=== PATIENT | male | born 1955 | race Caucasian/White ===

== ENCOUNTER → 2024-07-07 14:08 | Outpatient (REF) | payer MEDICARE, OTHER, SELFPAY | LOC: HWRAD 14:08 | PROVIDERS: ATTENDING PHYSICIAN Student in an Organized Health Care Education/Training Program; FAMILY PHYSICIAN Internal Medicine | DX: R05.3 Chronic cough (principal) | CPT/HCPCS: 71046 ==

== ENCOUNTER → 2024-11-24 13:09 | Outpatient (REF) | payer MEDICARE, OTHER, SELFPAY | LOC: CLAB 13:09 | PROVIDERS: ATTENDING PHYSICIAN Specialist | DX: R97.20 Elevated prostate specific antigen [PSA] (principal) | CPT/HCPCS: 88305 ==

== ENCOUNTER 2024-12-24 13:19 | Inpatient (IN) | payer MEDICARE, OTHER, SELFPAY ==
[2024-12-24] VITALS (14 sets, daily range): BP systolic 82–116; BP diastolic 54–71; BMI 26.5
--- NOTE | 2024-12-24 11:27 | ED.GENMED ---
History of Present Illness
General
Chief Complaint: Urinary Symptoms
Source: patient and spouse
Time Seen by Provider: 12/24/24 11:01
History of Present Illness
History of Present Illness:
69-year-old male with past medical history of hypertension, BPH, newly diagnosed prostate cancer (scheduled undergo MRI of Wednesday this week, currently not receiving any treatment) presenting to the ER for evaluation of a multitude of symptoms
including urinary frequency/urgency, dysuria, dark urine, headache, cough, mild shortness of breath and generalized fatigue. Symptoms started over the last 2 to 3 days, patient took a home COVID test yesterday which was negative. No recent sick
contacts, travel or recent antibiotics. Patient's prostate biopsy was on November 24 done at this facility. Patient completed the antibiotics following as directed. Currently denies any chills or rigors, abdominal pain, vomiting but does endorse
diminished p.o. intake to both solids and liquids. No other concerns presently
Past History
Past History
ED Past Medical History: Cancer and HTN
ED Past Surgical History: Other
Social History
Tobacco: Non-smoker
Alcohol: None
Drug: None
Personal:
Living: with family
Review of Systems
Review of Systems
All Other Systems: ROS reviewed and negative except as documented in HPI and ROS
Phy Exam
Physical Exam
Physical Exam:
GENERAL: Alert , in no apparent distress, hypotension from triage noted, repeated at time of my exam which was 82/57
EYE: clear conjunctiva b/l
HEAD: NCAT
ENT: o/p clr, mmm.
CARDIAC: Regular rate and rhythm .
LUNGS: Clear breath sounds bilaterally, no acute respiratory distress, no wheezes/rales/rhonchi
ABDOMEN: Soft, without focal tenderness, no r/g, no cvat
NEUROLOGICAL: Alert and oriented
SKIN: Warm and dry, skin intact.
MUSCULOSKELETAL: No edema, well perfused.
PSYCH: Normal and appropriate interaction.
Scores
Heart Failure Risk
Heart Failure Risk Score: Not Applicable
Heart Score for Chest Pain Patients
STEMI patient?: Not applicable
Withdrawal Assessment of Alcohol
Withdrawal Assessment Completed?: Not applicable
Sepsis
Sepsis Screening
Sepsis Assessment: Severe Sepsis
Sepsis Screening: Lactate >2mmol/L, Hypotension and ARF-Creatinine >2.0
Sepsis Screen
Sepsis Screen: Severe Sepsis
Date: 12/24/24
Time: 15:06
Course
Orders/Labs/Results
Orders:
Orders
12/24/24 10:34
EKG [Electrocardiogram (*1)] Urgent
Reason for Study: Shortness of Breath
EKG- Treatment ONCE
12/24/24 11:12
CR Chest - 2 Views Urgent
Comment:
Reason For Exam: cough, SOB
12/24/24 11:22
Complete Blood Count/With Diff Urgent
Comprehensive Metabolic Panel Urgent
Lactic Acid Q4H
Comment: CANCEL 2nd LACTIC ACID IF 1st LACTIC ACID IS LESS THAN 2
Troponin I Urgent
Blood Culture Q30M
ALONDRA Source: Blood/Venous
Specimen Description:
12/24/24 11:27
0.9% Sodium Chloride 1000 ml [Nss] 2,500 ml IV NOW STA
12/24/24 11:35
Blood Culture Q30M
ALONDRA Source: Blood/Venous
Specimen Description:
12/24/24 12:03
Cefepime HCl [Maxipime] 1,000 mg IV NOW STA
12/24/24 12:07
US Kidneys [US Renal Only W/O Bladder] Urgent
Comment:
Reason For Exam: renal failure
12/24/24 12:17
Sterile Water [Sterile Water For Injection] 20 ml .ROUTE .STK-MED
12/24/24 12:29
Admit/Transfer Patient As Directed
Co-Sign Provider:
Level of Care: Inpatient admission
Assign to:: Medical/Surgical
Physician / Group: frannie
Diagnosis: urosepsis
Reason for Hospitalization: urosepsis
Expected length of stay greater than two midnights?: Yes
ELOS- Estimated Length of Stay in days: 2
I certify the patient meets the requirements for IP care: Yes
12/24/24 12:30
Code Status As Directed
Resuscitation Status: Full Code
PRN Pain Medication Management As Directed
May give lesser potent ordered pain med per pt: Yes
preference::
Protocol:: Medication orders for pain may be administered in a
manner that supports deferring to patient preference
when the pt is:
- Requesting an ordered lesser potent pain medication.
Least to most potent pain medications are defined
as: acetaminophen < NSAID < tramadol < opioids
(morphine, oxycodone, hydromorphone).
- Requesting a lesser dose of the same medication IF
ORDERED.
- Requesting a less intrusive route of administration
if both routes are prescribed by the provider (PO <
IV).
12/24/24 12:32
CDIFF [C difficile Antigen & Toxins] Routine
ALONDRA Source: Feces/Stool
Specimen Description:
Respiratory Culture/Gram Stain Urgent
ALONDRA Source: Sputum
Specimen Description:
Stool Culture Routine
ALONDRA Source: Feces/Stool
Specimen Description:
12/24/24 14:16
Urinalysis Reflex To Culture Urgent
Date Specimen was Collected: 12/24/24
Time Specimen was Collected: 14:13
12/24/24 Dinner
Clear Liquid
12/24/24 15:05
0.9% Sodium Chloride 1000 ml [Nss] 1,000 ml IV 100 mls/hr
Acetaminophen [Tylenol] 650 mg PO Q4HPRN PRN
Azithromycin 500 mg/250 ml [Zithromax Infusion] 500 mg in 250 ml IV Q24H
CefTRIAXone [Rocephin] 1,000 mg IV Q24H
Ondansetron Injectable [Zofran] 4 mg IV Q6HPRN PRN
12/24/24 15:05
UROLOGY CONSULT Routine
Consulting Provider: Richar Garcia Jr.
Was physician already notified: Yes
Legionella Urinary Antigen Routine
ALONDRA Source: Urine
Specimen Description:
Strep pneumoniae Antigen Routine
ALONDRA Source: Urine
Specimen Description:
Activity As Directed
Activity Level: As Tolerated
Bladder Scan As Directed
Follow Bladder Retention/Intermittent Cath Algorithm?: Yes
PRN if no void in __ hours: 6
Frequency: Per Retention Algorithm
If Bladder Scan Result >: 400
then:: Straight cath
Straight Cath As Directed
Frequency: Per Retention Algorithm
Additional Instructions: straight cath as needed per acute urinary retention algorithm for 24 hrs
Additional Instructions: for bladder scan greater than 400 mL
Vital Signs As Directed
Frequency: Per unit guidelines
DX Deep Vein Thrombosis Video Routine
12/24/24 15:15
Lactic Acid Q4H
Comment: CANCEL 2nd LACTIC ACID IF 1st LACTIC ACID IS LESS THAN 2
12/24/24 20:00
Heparin 5,000 units SC Q12
Tamsulosin [Flomax] 0.4 mg PO BID
12/25/24 06:00
Complete Blood Count/With Diff IN AM
Comprehensive Metabolic Panel IN AM
Abnormal Lab Results
12/24/24
11:22
WBC 13.9 H 10^3/uL
(4.8-10.8)
RBC 3.60 L 10^6/uL
(4.70-6.10)
Hgb 11.1 L g/dL
(13.0-18.0)
Hct 31.4 L %
(39.0-52.0)
Plt Count 107 L 10^3/uL
(130-400)
Abs Immat Gran (auto) 1.3 H 10^3/uL
(0-0.05)
Absolute Neuts (auto) 12.0 H 10^3/uL
(1.4-6.5)
Absolute Lymphs (auto) 0.1 L 10^3/uL
(1.2-3.4)
Immature Gran % 9.3 H %
(0-0.5)
Neutrophils % 86.1 H %
(42.2-75.2)
Lymphocytes % 1.0 L %
(20.5-51.1)
Sodium 128 L mmol/L
(135-145)
Chloride 95 L mmol/L
(98-107)
BUN 64 H mg/dl
(9-20)
Creatinine 3.9 H mg/dL
(0.7-1.3)
Glucose 119 H mg/dl
(70-99)
Lactic Acid 3.0 H mmol/L
(0.7-2.0)
Calcium 8.0 L mg/dl
(8.4-10.2)
Total Protein 5.7 L g/dl
(6.3-8.2)
Albumin 3.4 L g/dl
(3.5-5.0)
12/24/24 11:22
12/24/24 11:22
Vital Signs
Initial and Last Documented VS:
Initial Vital Signs
Temp Pulse Resp BP Pulse Ox
97.8 F 88 17 87/59 99
12/24/24 10:29 12/24/24 10:29 12/24/24 10:29 12/24/24 10:29 12/24/24 10:29
Last Documented Vital Signs
Temp Pulse Resp BP Pulse Ox
97.8 F 75 24 109/62 95
12/24/24 10:29 12/24/24 14:15 12/24/24 14:15 12/24/24 14:15 12/24/24 14:15
MDM/Problems Addressed
Differential Diagnosis Includes:
Prostatitis
Cystitis
Pyelonephritis
Renal/ureteral colic
COVID/other viral etiology
Pneumonia
Sepsis/bacteremia
Electrolyte imbalance
Less likely ACS or any cardiac etiology
MDM/Problems Addressed:
69-year-old male presented to the ER for evaluation of generally feeling unwell, urinary symptoms as well as upper respiratory symptoms over the last 2 to 3 days. Patient recently diagnosed with prostate cancer, currently scheduled to undergo MRI
this coming Wednesday and will have further follow-up with urology for further treatment planning. Patient hypotensive but no tachycardia or fever here. Sepsis workup initiated. Will treat with sepsis fluid bundle. Will hold on antibiotics until
source identified. Disposition pending.
*Pulse Oximetry
SaO2: 99
Oxygen Mode of Delivery: Room air
Patient hypoxic: no
*EKG
Heart Rate: 82
Rate: normal
Rhythm: sinus and PAC's
Ischemia: no ischemia
*Senior Center Manager Interpretation
Rate: normal
Heart Rate: 77
Rhythm: sinus
*Critical Care Note
Total Time (30-74mins, 75-104mins- exclusive of procedures): 30
comment:
Critical care statement: A total of 30 minutes of critical care time was provided for this patient. This includes management of unstable vital signs, evaluation of the patient at bedside, reviewing the patient's pertinent medical records, discussion
with consultants, review of old EKGs and review of pertinent medical records. This time with separate from time utilized to perform the aforementioned documented procedures
Patient Management
Discussion with other providers: Hospitalist and Electro Mechanical Technologist
Escalation/DeEscalation of care consider admission/obs:
Patient labs significantly abnormal with WBC 14, lactic acid of 3, new onset renal failure. UA concerning for infection. Continuing sepsis fluids, IV abx. Hospitalist team and urology notified. Hospitalist team to admit
ED Attending Note
-
Portions of this chart may have been created with voice recognition software.� Occasional wrong word or��sound alike� substitutions may have occurred due to the inherent limitations of voice recognition software.
Discharge Plan
Departure
Patient Disposition: Admit
Date of Disposition: 12/24/24
Time of Disposition: 12:09
Presentation/result/management discussed w/ accepting MD/DO: Hospitalist
Discharge Problem:
Sepsis, Urinary tract infection
Interventions
Interventions:
*Risk Screen - Suicide Last Done: 12/24/24 10:34
*General Assessment Last Done: 12/24/24 10:34
*Neglect/Abuse Screening Last Done: 12/24/24 10:34
*ED COVID-19 Vaccine History Last Done: 12/24/24 10:34
ED-Male Genitourinary Assessment Last Done: 12/24/24 12:52
[2024-12-24] MEDS: NSS 2500 ML IV (11:32)
[2024-12-24 11:43] LABS: Hematocrit 31.4 % (39.0-52.0); Hemoglobin 11.1 g/dL (13.0-18.0); Mean Corp Hgb Conc. 35.4 g/dL (33.0-37.0); Mean Corpuscular Volume 87.2 fL (80.0-94.0); Platelet Count 107 10^3/uL (130-400); Red Cell Dist. Width 12.5 % (11.5-14.5)
[2024-12-24 12:00] LABS: ALT (SGPT) 32 U/L (0-50); AST (SGOT) 34 U/L (17-59); Albumin 3.4 g/dl (3.5-5.0); Alkaline Phosphatase 66 U/L (38-126); Blood Urea Nitrogen 64 mg/dl (9-20); Calcium 8.0 mg/dl (8.4-10.2); Carbon Dioxide 22 mmol/L (22-30); Chloride 95 mmol/L (98-107); Estimated Creatinine Clearance 19 ml/min; Glucose 119 mg/dl (70-99); Potassium 4.4 mmol/L (3.5-5.1); Sodium 128 mmol/L (135-145); Total Protein 5.7 g/dl (6.3-8.2); eGFR 16.11
[2024-12-24 12:13] LABS: Troponin I 0.023 ng/ml
[2024-12-24] MEDS: MAXIPIME 1000 MG IV (12:18)
--- NOTE | 2024-12-24 12:31 | CON.MD ---
Consultation - Medical
-
see dictated note
pt with hx of UTI earlier this year
presented to Dr Juan with PSA of 30
had bx in late october- + for multifocal prostate cancer- was given dennise-procedure levaquin and 1does of tobra at time of bx
now presents with increasing freq/dysuria- no hematuria but also diarrhea and cough/SOB
cr elevated
plan
suspected UTI
admit for hydration and iv antibx
check pvr/renal u/s
will follow
Consultation
-
Date/Time Consultation Requested: 12/24/24 at noon
Date/Time Consultation Performed: 12/24/24 at 12:30pm
Requesting Provider: ER
Performing Provider: Dr rodriguez
Reason for Consultation: UTI
--- NOTE | 2024-12-24 12:33 | HPS.HSE ---
Family Physician
-
Family Physician: Saud Londono
Chief Complaint
-
urinary symptoms
History of Present Illness
69-year-old male past medical history of hypertension, newly diagnosed prostate cancer, BPH, arthritis, presenting to emergency room with urinary frequency/urgency, pain with urination, dark urine, headache, cough, mild shortness of breath and
generalized fatigue, diarrhea over the past 1 to 2 days. He took home COVID test yesterday which was negative. He denies any sick contacts. He denies any fevers or chills,. He has pain in his right upper quadrant with some nausea but denies
vomiting. He did have diarrhea which was small-volume and multiple times although he has not eaten anything in past 24 hours. He denies any blood in the urine or difficulty voiding but urine is dark.
His last urinary tract infection was in July.
He is supposed to have prostate MRI this upcoming .
He denies smoking. He drinks 3 beers a day.
Recently had prostate biopsy in November 24 and completed postoperative antibiotic.
Medical History
Past Medical History
Past Medical History: Reports Other (hypertension, newly diagnosed prostate cancer, BPH, arthritis,)
Past Surgical History: Reports Other (Right shoulder repair)
Social History
Tobacco: Non-smoker
Alcohol: Daily
Drug: None
Family History
Family History: Not pertinent
Allergies / Home Medications
Allergies reflects when Allergies were last updated in [facility].
Home Medications with original date entered in [facility]
Allergy/Medication List:
Allergies
Allergy/AdvReac Type Severity Reaction Status Date / Time
Penicillins Allergy Rash Verified 12/24/24 10:31
Home Medications
Voltaren Ointment 1 dose topical DAILY arthritic knees 04/14/23
celecoxib 200 mg capsule (Celebrex) 200 mg PO BID 04/14/23
valsartan 320 mg tablet 320 mg PO DAILY 04/14/23
Review of Systems
-
History Source: Patient
A 12 point ROS was completed and negative except as noted: Yes
Constitutional: Reports No Symptoms
EENT: Reports See HPI
Respiratory: Reports See HPI
Cardiac: Reports No Symptoms
Abdomen/GI: Reports See HPI
: Reports See HPI
Musculoskeletal: Reports No Symptoms
Skin: Reports No Symptoms
Neurological: Reports No Symptoms
Endocrine: Reports No Symptoms
Hematologic/Lymphatic: Reports No Symptoms
Psych: Reports No Symptoms
Physical Exam
Vital Signs
Vital Signs
Temp Pulse Resp BP Pulse Ox
97.8 F 88 17 87/59 99
12/24/24 10:29 12/24/24 10:29 12/24/24 10:29 12/24/24 10:29 12/24/24 11:28
Physical Exam
General: Well Developed, Well Nourished and No Apparent Distress
HEENT: NormoCephalic, Moist mucous membranes and Atraumatic
Respiratory: Clear
Cardiac: S1/S2 and Regular Rhythm; No Murmur or Rub
GI: Soft, Non Tender, Non Distended and Normal Bowel Sounds; No Organomegaly
Rectal: Deferred by Provider
Musculoskeletal: No Clubbing, No Cyanosis and No Edema
Skin: No Rash
Neuro: Nonfocal/grossly intact
Laboratory Results
-
12/24/24 11:22
12/24/24 11:22
Laboratory Results
Lactic Acid 3.0 mmol/L (0.7-2.0) H 12/24/24 11:22
Total Bilirubin 0.7 mg/dl (0.2-1.3) 12/24/24 11:22
AST 34 U/L (17-59) 12/24/24 11:22
ALT 32 U/L (0-50) 12/24/24 11:22
Alkaline Phosphatase 66 U/L (38-126) 12/24/24 11:22
Troponin I 0.023 ng/ml 12/24/24 11:22
Data Reviewed
-
Lab Data: Labs Reviewed by me
Old Records: Reviewed
Impression/Plan
-
IMPRESSION:
PLAN:
# Possible urosepsis (leukocytosis, hypotension) after prostate biopsy on 11/24
# Recently diagnosed prostate cancer
# History of BPH/prior UTIs
-Lactic acid 3, continue to trend
- Check urinalysis, urine culture
- Blood cultures
- IV fluids
-Ultrasound kidneys pending
-Ceftriaxone
- Flomax
- Urology following
# Right basilar pneumonia/parapneumonic effusion
-Home test COVID-negative
- Check sputum culture, Legionella, strep antigen
- Ceftriaxone/Zithromycin
# Acute diarrhea
- Could be viral
- Check stool studies/C. difficile if continued diarrhea
- Clear liquid diet, advance as tolerated
# Acute kidney injury likely.
- IV fluids
- Bladder scan protocol
- Hold losartan
# Hyponatremia secondary to poor solute and
- Monitor with IV fluid
# Thrombocytopenia secondary to infection
- Continue to monitor
Daily alcohol use
-Drinks 3 beers per day
- Monitor for withdrawal
Full code
DVT prophylaxis�Heparin
Regular diet
[2024-12-24 12:41] LABS: Nucleated Red Blood Cells % 0 % (-)
--- NOTE | 2024-12-24 13:16 | CM ---
CM reviewed chart and met with pt bedside in ED. Lives with in 3 story home, 3 GABE front, 5 GABE back. Has first floor half BA.
Full flight to second floor BR/full BA.
Independent in ADLs, personal care and ambulation at baseline, no assistive devices.
Confirms prescription coverage.
No hx VN or SNF, hx [facility] for OP PT.
PCP: Saud Londono
Pharmacy: [facility]
Anticipate discharge home, CM will continue to follow for any discharge planning needs.
[2024-12-24 14:25] LABS: Urine Character Slightly Cloudy (Clear)
[2024-12-24 14:33] LABS: Urine Squamous Cell 0-2 /LPF (Few); Urine White Cell 30-40 /HPF (0-5)
--- NOTE | 2024-12-24 15:35 | TRANSFER ---
pt arrives at 1500. ambulated by self with stand by assist into hospital bed. VSS. admission and assessment being preformed. plan of care continues to be followed.
[2024-12-24] MEDS: NSS 1000 IV (16:07)
[2024-12-24] MEDS: ZITHROMAX INFUSION 250 IV (16:24)
[2024-12-24] MEDS: ZOFRAN 4 MG IV (16:54)
[2024-12-24] MEDS: ROCEPHIN 1000 MG IV (17:40)
[2024-12-24] MEDS: STERILE WATER FOR INJECTION 10 ML IV (17:40)
[2024-12-24] MEDS: HEPARIN 5000 UNITS SC (20:26)
[2024-12-24] MEDS: FLOMAX 0.4 MG PO (20:26)
[2024-12-25 00:17] VITALS: BMI 26.4
[2024-12-25] MEDS: NSS 1000 IV ×3 (03:13→23:51)
[2024-12-25] MEDS: TYLENOL 650 MG PO ×3 (03:17→23:20)
--- NOTE | 2024-12-25 03:27 | PTCARENOTE ---
12/24 7844 PAINTER TOUCH UP notified during rounds of critical value Blood cx gm neg bacilli
[2024-12-25 06:44] LABS: Hematocrit 28.7 % (39.0-52.0); Hemoglobin 10.0 g/dL (13.0-18.0); Mean Corp Hgb Conc. 34.8 g/dL (33.0-37.0); Mean Corpuscular Volume 88.9 fL (80.0-94.0); Platelet Count 101 10^3/uL (130-400); Red Cell Dist. Width 12.7 % (11.5-14.5)
[2024-12-25 06:58] LABS: ALT (SGPT) 25 U/L (0-50); AST (SGOT) 25 U/L (17-59); Albumin 3.0 g/dl (3.5-5.0); Alkaline Phosphatase 69 U/L (38-126); Blood Urea Nitrogen 64 mg/dl (9-20); Calcium 7.5 mg/dl (8.4-10.2); Carbon Dioxide 19 mmol/L (22-30); Chloride 105 mmol/L (98-107); Estimated Creatinine Clearance 23 ml/min; Glucose 90 mg/dl (70-99); Potassium 3.8 mmol/L (3.5-5.1); Sodium 133 mmol/L (135-145); Total Protein 5.3 g/dl (6.3-8.2); eGFR 20.43
[2024-12-25 07:00] VITALS: BP 119/67
[2024-12-25 07:04] LABS: Absolute Neutrophils -Man Diff 12.0 10^3/uL (1.4-6.5); Normal RBC Morphology Yes; Platelets Checked Yes
[2024-12-25 07:05] LABS: Total Cells Counted 100
--- NOTE | 2024-12-25 07:24 | W.PN.URO.CBU ---
Today's Communication / Plan
-
await ucx's
track UO and measure PVR
Assessment / Plan
-
urologic hx of UTI and prostate bx 1 month ago
dysuria
cough diarrhea
ARF
confusing clinical picture
likely UTI- on antibx- await cx's
suspected pneumonia- medically treated
ARF- no evid of obstruction on u/s- closely monitor I/O's- check pvr- continue flomax- will suggest nephrology input
Diagnosis
-
Date of Service: December 25, 2024
-
Patient Diagnosis:
hx of UTI
hx of + prostate bx (prostate cancer) october 2024
admitted with dysuria/cough and diarrhea
Subjective
-
pt says he still feels tired and has cough
dysuria persists but feels he is voiding normally (urine outpt and pvr not recorded)
wbc elevated- no fevers
cx's pending
cr remains elevated- renal and bladder u/s wre normal
Objective
-
Vital Signs
Temp Pulse Resp BP Pulse Ox
99.8 F 79 18 115/61 96
12/24/24 23:00 12/24/24 23:00 12/24/24 23:00 12/24/24 23:00 12/24/24 23:00
Intake and Output
12/24/24 12/25/24 12/26/24
06:59 06:59 06:59
Intake Total 775 / 775 1200 / 1200
Balance 775 / 775 1200 / 1200
Intake:
Oral fluids 240 / 240
IV fluids (Total) 275 / 275 1200 / 1200
IV piggybacks 260 / 260
Other:
Number of approximated MODERATE 1
amounts of urine
Laboratory Results
12/25/24 05:56
12/25/24 05:56
Review of Systems
-
Constitutional: Fatigue
Respiratory: Cough
Cardiac: No Symptoms
Abdomen/GI: No Symptoms
: Dysuria
Physical Exam
-
General - no acute distress
Abdomen - soft, non-tender
[2024-12-25] MEDS: COREG 6.25 MG PO ×2 (08:25→21:00)
[2024-12-25] MEDS: HEPARIN 5000 UNITS SC ×2 (08:25→21:01)
[2024-12-25] MEDS: FLOMAX 0.4 MG PO ×2 (08:25→21:00)
--- NOTE | 2024-12-25 14:05 | W.PN.HOSP.TC ---
Today's Communication/Plan
-
see outlined plan below
Assessment / Plan
Assessment / Plan
Assessment:
Severe sepsis POA (leukocytosis, tachypnea, lactic acidosis)
ESBL Bacteremia with acute UTI
- Hx of BPH with recent prostate biopsy 11/24
- renal US: no hydronephrosis, suspicious renal mass or calculus
- switch to Cefepime with ESBL in culture (PCN allergy)
- ID consulted
- repeat Bcx in AM
- continue sepsis protocol IVF; lactate normalized
Right basilar pneumonia with small parapneumonic effusion
Acute hypoxic respiratory insufficiency on 1L
- wean O2 as able
- continue Cefepime
- continue Azithromycin
- mucolytics, supportive care, IS/Acapella
Acute diarrhea
- Could be viral
- Check stool studies/C. difficile if continued diarrhea
- diet: regular
WESTLEY in setting of sepsis
- renal US: no hydronephrosis, suspicious renal mass or calculus
- continue IVF
- hold nephrotoxins
- BS/SC protocol
- daily BMP
Hyponatremia secondary to poor solute and
- Monitor with IV fluid
acute thrombocytopenia secondary to infection
- continue to monitor
- daily CBC
Daily alcohol use
- Drinks 3 beers per day
- Monitor for withdrawal
- MSAS protocol
DVT ppx: SC Heparin
Code: Full
Anticipated Discharge: > 48 hours
Subjective/Interval History
-
Date of Service: December 25, 2024
reports improvement with less SOB, less O2 use
Voiding without reported discomforts
Objective Data
-
Labs:
Laboratory Results
12/25/24
05:56
WBC 12.7 H
Hgb 10.0 L
Hct 28.7 L
Plt Count 101 L
Sodium 133 L
Potassium 3.8
Chloride 105
Carbon Dioxide 19 L
BUN 64 H
Creatinine 3.2 H
Glucose 90
Calcium 7.5 L
Total Bilirubin 0.7
AST 25
ALT 25
Alkaline Phosphatase 69
Vital Signs:
Vital Signs
Temp Pulse Resp BP Pulse Ox
98.2 F 69 19 119/67 94
12/25/24 07:00 12/25/24 07:00 12/25/24 07:00 12/25/24 07:00 12/25/24 07:00
I&O
12/24/24 12/25/24 12/26/24
06:59 06:59 06:59
Intake Total 775 / 775 1200 / 1200
Output Total 400 / 400
Balance 775 / 775 800 / 800
Physical Exam
-
General: No Apparent Distress
HEENT: Normocephalic and Atraumatic
Respiratory: Rhonchi (RLL)
Cardiac: Regular Rhythm and S1/S2
GI: Soft and Nontender
Musculoskeletal: No Edema
Neuro: AO x 3
Psych: Calm
Data Reviewed
-
Total Time Spent with Patient (in minutes): 42
Labs: Labs Reviewed by me
[2024-12-25 15:00] VITALS: BP 168/90
[2024-12-25] MEDS: MAXIPIME 1000 MG IV (15:41)
[2024-12-25] MEDS: MIRALAX 17 GRAMS PO (15:42)
[2024-12-25] MEDS: ZITHROMAX INFUSION 250 IV (15:42)
[2024-12-25] MEDS: STERILE WATER FOR INJECTION 10 ML IV ×2 (15:42→18:01)
--- NOTE | 2024-12-25 16:03 | CON.ID ---
Consultation
-
Date/Time Consultation Requested: 12/25/2024 1418
Date/Time Consultation Performed: 12/25/2024 1600
Requesting Provider: Dr. Schrader
Performing Provider: Dr. Lind
Reason for Consultation: Bacteremia
Chief Complaint / Past History
History of Present Illness
Anthony Hill is a 69-year-old man with a significant past medical history of HTN, BPH and newly diagnosed prostate cancer being evaluated at the request of Dr. Schrader regarding bacteremia. History is obtained from chart review, along with
patient interview.
The patient presented to the emergency room on 12/24 for evaluation of several issues including urinary frequency and urgency, headache, cough and mild shortness of breath. Respiratory symptoms develop over the prior 2 to 3 days. The patient
underwent a prostate biopsy on November 24. At admission he denied any chills or rigors or abdominal pain, but his noted diminished p.o. intake. Blood cultures obtained at the time of admission are now positive for ESBL E. coli, a urine culture
obtained at the same time showed gram-negative rods. Infectious Diseases is asked to comment upon further antimicrobial management.
Past History
Additional Past Medical History:
HTN
BPH
Arthritis
Prostate CA
Additional Past Surgical History:
Hernia repair
Prostate biopsy
Shoulder surgery
Allergy History:
Penicillins Allergy (Verified 12/24/24 10:31)
Rash
Current Antibiotics:
Azithromycin 500 mg IV q.24 hours
Cefepime 1 gm IV q.12 hours
Social History
Tobacco: Non-Smoker
Alcohol: Daily
Drug: None
Personal:
Living: With Family
Employment: Employed
Family History
Family History: Not Pertinent
Review of Systems
Vital Signs
Temp Pulse Resp BP Pulse Ox
99.5 F 88 18 168/90 97
12/25/24 15:00 12/25/24 15:00 12/25/24 15:00 12/25/24 15:00 12/25/24 15:00
Physical Exam
Physical Exam
Constitutional: No Acute Distress, Comfortable and Non-toxic
Head: Normocephalic
Eyes: Pupils Equal, Pupils Round, No Conjunctival Hemorrhage and Sclera Anicteric
Oral: No Ulcers
Cardiovascular: Regular Rate and S1/S2; Negative S3/S4
Pulmonary: Non Labored; Negative Wheezes or Rales
Gastrointestinal: Soft, Non Tender and Non Distended
Genito-Urinary: Negative Tim
Extremities: Negative Edema, Cyanosis or Erythema
Neurological: Awake and Alert
Psychological: Calm
Lab / Diagnostic Study Results
12/25/24 05:56
12/25/24 05:56
Abs Immat Gran (auto) 1.3 10^3/uL (0-0.05) H 12/24/24 11:22
Absolute Neuts (auto) 12.0 10^3/uL (1.4-6.5) H 12/24/24 11:22
Absolute Lymphs (auto) 0.1 10^3/uL (1.2-3.4) L 12/24/24 11:22
Absolute Monos (auto) 0.4 10^3/uL (0.1-0.6) 12/24/24 11:22
Absolute Basos (auto) 0.1 10^3/uL (0-0.2) 12/24/24 11:22
Total Counted 100 12/25/24 05:56
Immature Gran % 9.3 % (0-0.5) H 12/24/24 11:22
Neutrophils % 86.1 % (42.2-75.2) H 12/24/24 11:22
Lymphocytes % 1.0 % (20.5-51.1) L 12/24/24 11:22
Monocytes % 2.8 % (1.7-9.3) 12/24/24 11:22
Eosinophils % 0.1 % (0-6) 12/24/24 11:22
Basophils % 0.7 % (0-2) 12/24/24 11:22
Abs Neuts (Manual) 12.0 10^3/uL (1.4-6.5) H 12/25/24 05:56
Segmented Neutrophils 81 % (42-75) H 12/25/24 05:56
Band Neutrophils 14 % (0-3) H 12/25/24 05:56
Lymphocytes (Manual) 1 % (20-51) L 12/25/24 05:56
Lactic Acid 1.2 mmol/L (0.7-2.0) 12/24/24 22:42
Ur Squamous Epith Cells 0-2 /LPF (Few) 12/24/24 14:16
Microbiology Results
Micro:
12/24/24 11:22 Blood Culture - Preliminary
Blood/Venous Escherichia coli - ESBL
Gram Stain - Final
12/24/24 14:16 Urine Culture - Preliminary
Urine Gram negative bacilli
12/24/24 15:05 Legionella Urinary Antigen - Final
Urine Negative for Legionella pneumophila Serogroup 1 antigen.
A negative result does not rule out the possiblity of
Legionella infection due to other serogroups or species of
Legionella. Clinical correlation is recommended.
Streptococcus pneumoniae Antigen (M - Final
Negative for Streptococcus pneumoniae antigen.
A negative result does not exclude infection with
Streptococcus pneumoniae. Clinical correlation is
recommended.
12/24/24 11:35 Blood Culture - Preliminary
Blood/Venous Positive culture in progress
Gram Stain - Preliminary
Imaging:
12/20/2024 Renal ultrasound no hydronephrosis, suspicious renal mass or calculus. Left kidney is mildly atrophic.
12/20/2024 CXR (2 view): right basilar infiltrate noted. Blunting of the right costophrenic angle noted. No pneumothorax. Please see full dictation for additional detail.
Assessment / Plan
ESBL E. coli bacteremia
Complicated urinary tract infection
Right lower lobe pneumonia
Leukocytosis
Renal insufficiency
HTN
BPH
Arthritis
Prostate CA
Recommendations:
Discontinue further Azithromycin and cefepime.
Given recovery of ESBL E. coli, begin meropenem 500 mg IV q.8 hours (dosed for renal insufficiency)
Repeat blood cultures prior to initiation of antibiotics.
Follow white count and temperature curve.
Await sputum culture.
Further recommendations as additional data is returned.
--- NOTE | 2024-12-25 16:17 | CM ---
Pt is on oxygen 1 liter POX 94 %. Weaning to room air . Watch for home oxygen needs.
On Iv antibiotics
Spoke with patient in room.
Offered VN he declined need.
Snehal will drive him home.
PLAN Home no needs Watch for home oxygen needs
[2024-12-25] MEDS: MERREM 500 MG IV (18:01)
[2024-12-25 18:45] LABS: Hepatitis C Antibody Negative (Negative)
[2024-12-25] MEDS: SENOKOT 8.6 MG PO (21:00)
[2024-12-25] MEDS: THIAMINE INJECTION 200 MG IV (21:02)
[2024-12-25] MEDS: MUCINEX 1200 MG PO (21:04)
[2024-12-25 23:22] VITALS: BP 132/61
--- NOTE | 2024-12-25 23:35 | PTCARENOTE ---
Patient assessment shows low grade fever. Patient provided Tylenol for fever. During administration patients respiratory pattern became more labored with compliants of difficulty breathing. Oxygention saturation is 89% on room air. Supplemental
oxygen applied at 1L/min. scallop cutter provider Humberto DOHERTY notified of patient condition and requested nebulizer treatment.
[2024-12-25] MEDS: ATIVAN 1 MG PO (23:49)
[2024-12-26] MEDS: MERREM 500 MG IV ×3 (02:48→17:38)
[2024-12-26] MEDS: STERILE WATER FOR INJECTION 10 ML IV ×3 (02:48→17:37)
[2024-12-26 07:33] LABS: Blood Urea Nitrogen 60 mg/dl (9-20); Calcium 7.5 mg/dl (8.4-10.2); Carbon Dioxide 18 mmol/L (22-30); Chloride 110 mmol/L (98-107); Estimated Creatinine Clearance 28 ml/min; Glucose 103 mg/dl (70-99); Magnesium 2.3 mg/dl (1.6-2.3); Potassium 3.9 mmol/L (3.5-5.1); Sodium 137 mmol/L (135-145); eGFR 26.21
[2024-12-26 07:47] LABS: Hematocrit 27.2 % (39.0-52.0); Hemoglobin 9.4 g/dL (13.0-18.0); Mean Corp Hgb Conc. 34.6 g/dL (33.0-37.0); Mean Corpuscular Volume 90.4 fL (80.0-94.0); Red Cell Dist. Width 13.3 % (11.5-14.5)
[2024-12-26 08:10] VITALS: BP 130/62
[2024-12-26] MEDS: SENOKOT 8.6 MG PO ×2 (09:39→19:58)
[2024-12-26] MEDS: FLOMAX 0.4 MG PO ×2 (09:39→20:03)
[2024-12-26] MEDS: MUCINEX 1200 MG PO ×2 (09:39→19:59)
[2024-12-26] MEDS: COREG 6.25 MG PO ×2 (09:39→19:59)
[2024-12-26] MEDS: FOLVITE 1 MG PO (09:39)
[2024-12-26] MEDS: THIAMINE INJECTION 200 MG IV ×2 (09:42→21:38)
[2024-12-26] MEDS: MIRALAX 17 GRAMS PO (09:42)
[2024-12-26] MEDS: HEPARIN 5000 UNITS SC ×2 (09:43→20:03)
[2024-12-26 10:33] LABS: Platelet Count 95 10^3/uL (130-400)
[2024-12-26] MEDS: NSS 1000 IV (10:37)
--- NOTE | 2024-12-26 12:49 | W.PN.HOSP.TC ---
Today's Communication/Plan
-
continue Antibiotics pending cultures
follow ID/Urology recs
Assessment / Plan
Assessment / Plan
Assessment:
Severe sepsis POA (leukocytosis, tachypnea, lactic acidosis)
ESBL Bacteremia with acute ESBL UTI
- Hx of BPH with recent prostate biopsy 11/24
- renal US: no hydronephrosis, suspicious renal mass or calculus
- continue Meropenem, day 2 per ID
- repeat Bcx pending
- s/p sepsis protocol IVF; lactate normalized
Right basilar pneumonia with small parapneumonic effusion
Acute hypoxic respiratory insufficiency on 1L
- wean O2 as able
- continue Meropenem, day 2 per ID
- mucolytics, supportive care, IS/Acapella
Acute diarrhea
- Could be viral
- Check stool studies/C. difficile if continued diarrhea
- diet: regular
WESTLEY in setting of sepsis
- renal US: no hydronephrosis, suspicious renal mass or calculus
- continue IVF
- hold nephrotoxins
- BS/SC protocol
- daily BMP, Cr improving, currently 2.6
Hyponatremia secondary to poor solute and
- Monitor with IV fluid
acute thrombocytopenia secondary to infection
- continue to monitor
- daily CBC
Daily alcohol use
- Drinks 3 beers per day
- Monitor for withdrawal
- MSAS protocol
DVT ppx: SC Heparin
Code: Full
Anticipated Discharge: > 48 hours
Subjective/Interval History
-
Date of Service: December 26, 2024
resting comfortably, no complaints
Objective Data
-
Labs:
Laboratory Results
12/26/24
06:20
WBC 10.9 H
Hgb 9.4 L
Hct 27.2 L
Plt Count 95 L
Sodium 137
Potassium 3.9
Chloride 110 H
Carbon Dioxide 18 L
BUN 60 H
Creatinine 2.6 H
Glucose 103 H
Calcium 7.5 L
Vital Signs:
Vital Signs
Temp Pulse Resp BP Pulse Ox
99.1 F 75 14 130/62 96
12/26/24 08:10 12/26/24 08:10 12/26/24 08:10 12/26/24 08:10 12/26/24 09:30
I&O
12/25/24 12/26/24 12/27/24
06:59 06:59 06:59
Intake Total 775 / 775 4080 / 4080
Output Total 2074 / 2074
Balance 775 / 775 2004
Physical Exam
-
General: No Apparent Distress
HEENT: Normocephalic and Atraumatic
Respiratory: Negative Wheezes
Cardiac: Regular Rhythm and S1/S2
GI: Soft
Musculoskeletal: No Edema
Neuro: AO x 3
Psych: Calm
Data Reviewed
-
Total Time Spent with Patient (in minutes): 41
Labs: Labs Reviewed by me
--- NOTE | 2024-12-26 13:01 | W.PN.ID1 ---
Date of Service
Date of Service: December 26, 2024
Today's Communication
Continue antibiotics.
Assessment / Plan
ESBL E. coli bacteremia
Complicated urinary tract infection
Right lower lobe pneumonia
Leukocytosis
Renal insufficiency
HTN
BPH
Arthritis
Prostate CA
Recommendations:
Continue meropenem 500 mg IV q.8 hours (dosed for renal insufficiency)
Repeat blood cultures pending.
Follow white count and temperature curve.
Await sputum culture.
Further recommendations as additional data is returned.
Chief Complaint
-: Bacteremia
Subjective / Review of Systems
Patient seen and examined. Reports recurrence of fevers overnight. Still with some dysuria.
Vital Signs / Physical Exam
Vital Signs
Vital Signs
Temp Pulse Resp BP Pulse Ox
99.1 F 75 14 130/62 96
12/26/24 08:10 12/26/24 08:10 12/26/24 08:10 12/26/24 08:10 12/26/24 09:30
Physical Exam
Constitutional: Comfortable and Non-toxic
Eyes: Sclera Anicteric
Cardiovascular: S1/S2; Negative S3/S4 or Murmur
Pulmonary: Clear; Negative Wheezes or Rales
Gastrointestinal: Soft, Non Tender and Non Distended
Extremities: Negative Edema, Clubbing or Cyanosis
Neurological: Awake and Alert
Psychological: Calm
Objective Data
Lab Data
Lab Results
12/26/24 06:20
12/26/24 06:20
Estimated Creat Clear 28 ml/min 12/26/24 06:20
Lactic Acid 1.2 mmol/L (0.7-2.0) 12/24/24 22:42
Total Bilirubin 0.7 mg/dl (0.2-1.3) 12/25/24 05:56
AST 25 U/L (17-59) 12/25/24 05:56
ALT 25 U/L (0-50) 12/25/24 05:56
Alkaline Phosphatase 69 U/L (38-126) 12/25/24 05:56
Most recent labs reviewed.
Micro Results:
12/24/24 14:16 Urine Culture - Final
Urine Escherichia coli - ESBL
12/24/24 11:35 Blood Culture - Preliminary
Blood/Venous Escherichia coli - ESBL
Gram Stain - Final
12/24/24 11:22 Blood Culture - Preliminary
Blood/Venous Escherichia coli - ESBL
Gram Stain - Final
12/25/24 17:17 Blood Culture - Preliminary
Blood/Venous Positive culture in progress
Gram Stain - Preliminary
12/26/24 06:20 Blood Culture - Pending
Blood/Venous
12/25/24 17:17 Blood Culture - Pending
Blood/Venous
12/25/24 15:54 Respiratory Culture - Final
Sputum Gram Stain - Final
12/24/24 15:05 Legionella Urinary Antigen - Final
Urine Negative for Legionella pneumophila Serogroup 1 antigen.
A negative result does not rule out the possiblity of
Legionella infection due to other serogroups or species of
Legionella. Clinical correlation is recommended.
Streptococcus pneumoniae Antigen (M - Final
Negative for Streptococcus pneumoniae antigen.
A negative result does not exclude infection with
Streptococcus pneumoniae. Clinical correlation is
recommended.
Imaging:
12/20/2024 Renal ultrasound no hydronephrosis, suspicious renal mass or calculus. Left kidney is mildly atrophic.
12/20/2024 CXR (2 view): right basilar infiltrate noted. Blunting of the right costophrenic angle noted. No pneumothorax. Please see full dictation for additional detail.
--- NOTE | 2024-12-26 13:45 | PTCARENOTE ---
patient denies complaints, denies sob, tolerating diet, transferring with standby assist, vss, will continue to monitor.
[2024-12-26 15:39] VITALS: BP 119/64
--- NOTE | 2024-12-26 15:46 | CM ---
Patient seen bedside with spouse.
Discussed possible d/c needs and possible home IV anbx.
Patient and spouse in agreement if needed, options discussed.
Patient remains ion IV anbx.
Plan: home with possible VN and anbx needs.
--- NOTE | 2024-12-26 16:01 | W.PN.URO.CBU ---
Today's Communication / Plan
-
NO INTERVENTION
Assessment / Plan
-
urologic hx of UTI and prostate bx 1 month ago bacteremia matching ur cx
dysuria
cough diarrhea
ARF
iv abs per ID
suspected pneumonia- medically treated
ARF- no evid of obstruction on u/s- creatinine down
Diagnosis
-
Date of Service: December 26, 2024
-
Patient Diagnosis:
Post Op Day:
Patient Diagnosis:
hx of UTI
hx of + prostate bx (prostate cancer) october 2024
admitted with dysuria/cough and diarrhea
Subjective
-
weak and dysuria less fever
Objective
-
Vital Signs
Temp Pulse Resp BP Pulse Ox
98.8 F 60 14 119/64 96
12/26/24 15:39 12/26/24 15:39 12/26/24 15:39 12/26/24 15:39 12/26/24 15:39
Intake and Output
12/25/24 12/26/24 12/27/24
06:59 06:59 06:59
Intake Total 775 / 775 4080 / 4080
Output Total 2074
Balance 775 / 775 2004
Intake:
Oral fluids 240 / 240 1680 / 1680
IV fluids (Total) 275 / 275 2400 / 2400
IV piggybacks 260 / 260
Output:
Urine, Voided 2074
Other:
Number of approximated MODERATE 1 1
amounts of urine
Laboratory Results
12/26/24 06:20
12/26/24 06:20
Review of Systems
-
Respiratory: Cough
: Dysuria and Frequency
Physical Exam
-
General - well developed, well nourished, no acute distress
Chest - clear bilaterally
Abdomen - soft, non-tender, positive bowel sounds, no CVAT, no incisional pain or distention
Genitalia - normal
Rectal - normal
Skin - warm & dry with no rash
Neuro - AOx3, no motor deficits
Extremities - no clubbing, no cyanosis, no edema
Incision - clean, dry
Dressing - clean, dry, intact
Care Review
Data Reviewed
Discussed with: Nursing and Family
[2024-12-26] MEDS: DUONEB 3 ML INH (18:51)
[2024-12-26] MEDS: TYLENOL 650 MG PO (19:58)
[2024-12-26 19:59] VITALS: BP 145/75
--- NOTE | 2024-12-26 20:00 | PTCARENOTE ---
Patient provided Tylenol for increased temperature of 100.5 orally. Provided with scheduled evening medications.
[2024-12-26 23:00] VITALS: BP 103/50
[2024-12-27] MEDS: STERILE WATER FOR INJECTION 10 ML IV ×3 (02:48→17:08)
[2024-12-27] MEDS: MERREM 500 MG IV ×3 (02:49→17:07)
[2024-12-27 06:45] LABS: Hematocrit 27.6 % (39.0-52.0); Hemoglobin 9.7 g/dL (13.0-18.0); Mean Corp Hgb Conc. 35.1 g/dL (33.0-37.0); Mean Corpuscular Volume 89.9 fL (80.0-94.0); Platelet Count 106 10^3/uL (130-400); Red Cell Dist. Width 13.2 % (11.5-14.5)
[2024-12-27 07:00] LABS: Blood Urea Nitrogen 54 mg/dl (9-20); Calcium 7.9 mg/dl (8.4-10.2); Carbon Dioxide 18 mmol/L (22-30); Chloride 108 mmol/L (98-107); Estimated Creatinine Clearance 31 ml/min; Glucose 99 mg/dl (70-99); Potassium 3.7 mmol/L (3.5-5.1); Sodium 135 mmol/L (135-145); eGFR 28.85
[2024-12-27 07:52] VITALS: BP 146/69
[2024-12-27] MEDS: SODIUM BICARBONATE 1150 MEQ IV ×2 (08:43→22:27)
[2024-12-27] MEDS: MUCINEX 1200 MG PO ×2 (08:43→20:40)
[2024-12-27] MEDS: HEPARIN 5000 UNITS SC ×2 (08:43→20:39)
[2024-12-27] MEDS: THIAMINE INJECTION 200 MG IV ×2 (08:44→20:39)
[2024-12-27] MEDS: COREG 6.25 MG PO ×2 (08:45→20:40)
[2024-12-27] MEDS: MIRALAX PO (08:45)
[2024-12-27] MEDS: FLOMAX 0.4 MG PO ×2 (08:45→20:40)
[2024-12-27] MEDS: FOLVITE 1 MG PO (08:45)
[2024-12-27] MEDS: SENOKOT PO ×2 (08:47→20:45)
--- NOTE | 2024-12-27 10:31 | W.PN.ID1 ---
Date of Service
Date of Service: December 27, 2024
Today's Communication
Continue antibiotics.
Assessment / Plan
ESBL E. coli bacteremia
Complicated urinary tract infection
Right lower lobe infiltrate / pneumonia
Leukocytosis
Renal insufficiency
-improving
HTN
BPH
Arthritis
Prostate CA
Recommendations:
Continue meropenem 500 mg IV q.8 hours (dosed for renal insufficiency)
Repeat blood cultures without growth; continuing to follow
Follow white count and temperature curve. Temperature noted last evening
Sputum culture unrevealing.
Follow for clinical improvement
����������������������������������������������������������
Chief Complaint
-: Bacteremia
Subjective / Review of Systems
Patient continues to feel unwell. Reports intermittent headache. Also notes a very dry mouth, and diarrhea anytime he drinks fluids. Minimal cough. No shortness of breath. Fever noted to 100.5 last evening.
Vital Signs / Physical Exam
Vital Signs
Vital Signs
Temp Pulse Resp BP Pulse Ox
99.6 F 69 16 146/69 96
12/27/24 07:52 12/27/24 07:52 12/27/24 07:52 12/27/24 07:52 12/27/24 07:52
Physical Exam
Constitutional: Well Developed, Comfortable and Non-toxic
Eyes: Sclera Anicteric
Cardiovascular: S1/S2; Negative S3/S4 or Murmur
Pulmonary: Clear; Negative Wheezes or Rales
Gastrointestinal: Soft, Non Tender and Non Distended
Extremities: Negative Edema, Clubbing or Cyanosis
Neurological: Awake and Alert
Psychological: Calm
Objective Data
Lab Data
Lab Results
12/27/24 05:33
12/27/24 05:33
Estimated Creat Clear 31 ml/min 12/27/24 05:33
Lactic Acid 1.2 mmol/L (0.7-2.0) 12/24/24 22:42
Total Bilirubin 0.7 mg/dl (0.2-1.3) 12/25/24 05:56
AST 25 U/L (17-59) 12/25/24 05:56
ALT 25 U/L (0-50) 12/25/24 05:56
Alkaline Phosphatase 69 U/L (38-126) 12/25/24 05:56
Most recent labs reviewed.
Micro Results:
12/24/24 11:35 Blood Culture - Final
Blood/Venous Escherichia coli - ESBL
Gram Stain - Final
12/24/24 11:22 Blood Culture - Final
Blood/Venous Escherichia coli - ESBL
Gram Stain - Final
12/25/24 17:17 Blood Culture - Preliminary
Blood/Venous Escherichia coli - ESBL
Gram Stain - Preliminary
12/26/24 21:28 C. difficile GDH Antigen & Toxins - Final
Feces/Stool Negative for toxigenic C.difficile
12/26/24 06:20 Blood Culture - Preliminary
Blood/Venous No Growth in 24 hours- Final report to follow
12/26/24 21:28 Salmonella/Shigella Culture - Pending
Feces/Stool Campylobacter Culture - Pending
Shiga Toxin Test - Pending
12/24/24 14:16 Urine Culture - Final
Urine Escherichia coli - ESBL
12/25/24 17:17 Blood Culture - Preliminary
Blood/Venous Positive culture in progress
Gram Stain - Preliminary
12/25/24 15:54 Respiratory Culture - Final
Sputum Gram Stain - Final
12/24/24 15:05 Legionella Urinary Antigen - Final
Urine Negative for Legionella pneumophila Serogroup 1 antigen.
A negative result does not rule out the possiblity of
Legionella infection due to other serogroups or species of
Legionella. Clinical correlation is recommended.
Streptococcus pneumoniae Antigen (M - Final
Negative for Streptococcus pneumoniae antigen.
A negative result does not exclude infection with
Streptococcus pneumoniae. Clinical correlation is
recommended.
Imaging:
12/20/2024 Renal ultrasound no hydronephrosis, suspicious renal mass or calculus. Left kidney is mildly atrophic.
12/20/2024 CXR (2 view): right basilar infiltrate noted. Blunting of the right costophrenic angle noted. No pneumothorax. Please see full dictation for additional detail.
--- NOTE | 2024-12-27 11:21 | W.PN.HOSP.TC ---
Today's Communication/Plan
-
continue IVF/bicarbonate
continue IV Abx
fever control
Assessment / Plan
Assessment / Plan
Assessment:
Severe sepsis POA (leukocytosis, tachypnea, lactic acidosis)
ESBL Bacteremia with acute ESBL UTI
- Hx of BPH with recent prostate biopsy 11/24
- renal US: no hydronephrosis, suspicious renal mass or calculus
- continue Meropenem, day 3 per ID
- repeat Bcx NGTD
- s/p sepsis protocol IVF; lactate normalized
Right basilar pneumonia with small parapneumonic effusion
Acute hypoxic respiratory insufficiency on 1L
- wean O2 as able
- continue Meropenem, day 3 per ID
- mucolytics, supportive care, IS/Acapella
Acute diarrhea
- Could be viral
- C. Diff negative. Other stool studies pending
- diet: regular
WESTLEY in setting of sepsis
- renal US: no hydronephrosis, suspicious renal mass or calculus
- continue IVF with bicarbonate due to acute metabolic acidosis
- hold nephrotoxins
- BS/SC protocol
- daily BMP, Cr improving, currently 2.4
Hyponatremia secondary to poor solute and
- Monitor with IV fluid
acute thrombocytopenia secondary to infection
- continue to monitor
- daily CBC
Daily alcohol use
- Drinks 3 beers per day
- Monitor for withdrawal
- MSAS protocol
DVT ppx: SC Heparin
Code: Full
Anticipated Discharge: > 48 hours
Subjective/Interval History
-
Date of Service: December 27, 2024
fever 100.5 Tmax
reports feeling unwell and still with urine incontinence
Objective Data
-
Labs:
Laboratory Results
12/27/24
05:33
WBC 10.1
Hgb 9.7 L
Hct 27.6 L
Plt Count 106 L
Sodium 135
Potassium 3.7
Chloride 108 H
Carbon Dioxide 18 L
BUN 54 H
Creatinine 2.4 H
Glucose 99
Calcium 7.9 L
Vital Signs:
Vital Signs
Temp Pulse Resp BP Pulse Ox
99.6 F 69 16 146/69 96
12/27/24 07:52 12/27/24 07:52 12/27/24 07:52 12/27/24 07:52 12/27/24 07:52
I&O
12/26/24 12/27/24 12/28/24
06:59 06:59 06:59
Intake Total 4080 / 4080 900 / 900
Output Total 2074 / 2074 1300 / 1300 400 / 400
Balance 2004 / 2004 -400 / -400 -400 / -400
Physical Exam
-
General: No Apparent Distress
HEENT: Normocephalic and Atraumatic
Respiratory: Negative Wheezes
Cardiac: Regular Rhythm and S1/S2
GI: Soft
Neuro: AO x 3
Psych: Calm
Data Reviewed
-
Total Time Spent with Patient (in minutes): 42
Labs: Labs Reviewed by me
[2024-12-27] MEDS: MYLICON 80 MG PO (12:24)
[2024-12-27 15:55] VITALS: BP 157/76
--- NOTE | 2024-12-27 16:41 | W.PN.URO.CBU ---
Today's Communication / Plan
-
continue preset care
Assessment / Plan
-
urologic hx of UTI and prostate bx 1 month ago bacteremia matching ur cx
dysuria
cough diarrhea
ARF
iv abs per ID
suspected pneumonia- medically treated
ARF- no evid of obstruction on u/s- creatinine down
Diagnosis
-
Date of Service: December 27, 2024
-
Patient Diagnosis:
Post Op Day:
Patient Diagnosis:
Post Op Day:
Patient Diagnosis:
hx of UTI
hx of + prostate bx (prostate cancer) october 2024
admitted with dysuria/cough and diarrhea
Subjective
-
diarrhea and frequncy
Objective
-
Vital Signs
Temp Pulse Resp BP Pulse Ox
99.6 F 67 14 157/76 97
12/27/24 15:55 12/27/24 15:55 12/27/24 15:55 12/27/24 15:55 12/27/24 15:55
Intake and Output
12/26/24 12/27/24 12/28/24
06:59 06:59 06:59
Intake Total 4080 / 4080 900 / 900
Output Total 2074 1300 / 1300 400 / 400
Balance 2004 / 2004 -400 / -400 -400 / -400
Intake:
Oral fluids 1680 / 1680 900 / 900
IV fluids (Total) 2400 / 2400
Output:
Urine, Voided 2074 1300 / 1300 400 / 400
Other:
Number of approximated MODERATE 1
amounts of urine
Number of unmeasured liquid
stools
Rectum 4
Laboratory Results
12/27/24 05:33
12/27/24 05:33
Review of Systems
-
Abdomen/GI: Diarrhea
: Frequency
Physical Exam
-
General - well developed, well nourished, no acute distress
Chest - clear bilaterally
Abdomen - soft, non-tender, positive bowel sounds, no CVAT, no incisional pain or distention
Genitalia - normal
Rectal - normal
Skin - warm & dry with no rash
Neuro - AOx3, no motor deficits
Extremities - no clubbing, no cyanosis, no edema
Incision - clean, dry
Dressing - clean, dry, intact
[2024-12-27] MEDS: TYLENOL 650 MG PO (23:09)
[2024-12-27 23:10] VITALS: BP 133/64
[2024-12-28] MEDS: STERILE WATER FOR INJECTION 10 ML IV ×3 (01:12→17:18)
[2024-12-28] MEDS: MERREM 500 MG IV ×3 (01:13→17:18)
[2024-12-28 06:38] LABS: Blood Urea Nitrogen 48 mg/dl (9-20); Calcium 8.4 mg/dl (8.4-10.2); Carbon Dioxide 25 mmol/L (22-30); Chloride 102 mmol/L (98-107); Estimated Creatinine Clearance 35 ml/min; Glucose 101 mg/dl (70-99); Potassium 3.5 mmol/L (3.5-5.1); Sodium 137 mmol/L (135-145); eGFR 33.87
[2024-12-28 06:48] LABS: Hematocrit 31.8 % (39.0-52.0); Hemoglobin 11.3 g/dL (13.0-18.0); Mean Corp Hgb Conc. 35.5 g/dL (33.0-37.0); Mean Corpuscular Volume 88.6 fL (80.0-94.0); Platelet Count 151 10^3/uL (130-400); Red Cell Dist. Width 13.3 % (11.5-14.5)
[2024-12-28 07:52] VITALS: BP 156/72
[2024-12-28] MEDS: FLOMAX 0.4 MG PO ×2 (09:01→22:01)
[2024-12-28] MEDS: FOLVITE 1 MG PO (09:01)
[2024-12-28] MEDS: COREG 6.25 MG PO ×2 (09:01→22:00)
[2024-12-28] MEDS: THIAMINE INJECTION 200 MG IV (09:02)
[2024-12-28] MEDS: MUCINEX 1200 MG PO ×2 (09:02→22:02)
[2024-12-28] MEDS: HEPARIN 5000 UNITS SC ×2 (09:03→22:01)
[2024-12-28] MEDS: MIRALAX PO (09:22)
[2024-12-28] MEDS: SENOKOT PO (09:23)
[2024-12-28] MEDS: NSS 1000 IV ×2 (09:28→22:03)
[2024-12-28] MEDS: TYLENOL 650 MG PO ×2 (10:09→22:50)
--- NOTE | 2024-12-28 10:49 | W.PN.ID1 ---
Date of Service
Date of Service: December 28, 2024
Today's Communication
Continue antibiotics.
Assessment / Plan
ESBL E. coli bacteremia
Complicated urinary tract infection
Right lower lobe infiltrate / pneumonia
Leukocytosis
Renal insufficiency
-improving
HTN
BPH
Arthritis
Prostate CA
Recommendations:
Continue meropenem 500 mg IV q.8 hours (dosed for renal insufficiency)
Repeat blood cultures without growth; continuing to follow
Follow white count and temperature curve. Temperature noted last evening
Sputum culture unrevealing.
Follow for clinical improvement
Case discussed with Hospitalist. Given fevers. Have recommended imaging of the lungs and abdomen to look for potential occult source of infection. CT to be performed tomorrow.
����������������������������������������������������������
Chief Complaint
-: Bacteremia
Subjective / Review of Systems
Low-grade fevers noted overnight. Overall, patient reports that he is feeling improved, especially since this a.m.
Vital Signs / Physical Exam
Vital Signs
Vital Signs
Temp Pulse Resp BP Pulse Ox
99.5 F 67 14 156/72 96
12/28/24 07:52 12/28/24 07:52 12/28/24 07:52 12/28/24 07:52 12/28/24 07:52
Physical Exam
Constitutional: Well Developed, Comfortable and Non-toxic
Eyes: Sclera Anicteric
Cardiovascular: S1/S2; Negative S3/S4 or Murmur
Pulmonary: Clear; Negative Wheezes or Rales
Gastrointestinal: Soft, Non Tender and Non Distended
Extremities: Negative Edema, Clubbing or Cyanosis
Neurological: Awake and Alert
Psychological: Calm
Objective Data
Lab Data
Lab Results
12/28/24 05:47
12/28/24 05:47
Estimated Creat Clear 35 ml/min 12/28/24 05:47
Lactic Acid 1.2 mmol/L (0.7-2.0) 12/24/24 22:42
Total Bilirubin 0.7 mg/dl (0.2-1.3) 12/25/24 05:56
AST 25 U/L (17-59) 12/25/24 05:56
ALT 25 U/L (0-50) 12/25/24 05:56
Alkaline Phosphatase 69 U/L (38-126) 12/25/24 05:56
Most recent labs reviewed.
Micro Results:
12/26/24 21:28 Salmonella/Shigella Culture - Pending
Feces/Stool Campylobacter Culture - Pending
Shiga Toxin Test - Final
No E. coli Shiga Toxin 1 or 2 detected.
12/26/24 06:20 Blood Culture - Preliminary
Blood/Venous No Growth in 48 hours- Final report to follow
12/25/24 17:17 Blood Culture - Preliminary
Blood/Venous Escherichia coli - ESBL
Gram Stain - Preliminary
12/24/24 11:35 Blood Culture - Final
Blood/Venous Escherichia coli - ESBL
Gram Stain - Final
12/24/24 11:22 Blood Culture - Final
Blood/Venous Escherichia coli - ESBL
Gram Stain - Final
12/25/24 17:17 Blood Culture - Preliminary
Blood/Venous Escherichia coli - ESBL
Gram Stain - Preliminary
12/26/24 21:28 C. difficile GDH Antigen & Toxins - Final
Feces/Stool Negative for toxigenic C.difficile
12/24/24 14:16 Urine Culture - Final
Urine Escherichia coli - ESBL
12/25/24 15:54 Respiratory Culture - Final
Sputum Gram Stain - Final
12/24/24 15:05 Legionella Urinary Antigen - Final
Urine Negative for Legionella pneumophila Serogroup 1 antigen.
A negative result does not rule out the possiblity of
Legionella infection due to other serogroups or species of
Legionella. Clinical correlation is recommended.
Streptococcus pneumoniae Antigen (M - Final
Negative for Streptococcus pneumoniae antigen.
A negative result does not exclude infection with
Streptococcus pneumoniae. Clinical correlation is
recommended.
Imaging:
12/20/2024 Renal ultrasound no hydronephrosis, suspicious renal mass or calculus. Left kidney is mildly atrophic.
12/20/2024 CXR (2 view): right basilar infiltrate noted. Blunting of the right costophrenic angle noted. No pneumothorax. Please see full dictation for additional detail.
Care Review
Plan reviewed with: Physician (Hospitalist)
--- NOTE | 2024-12-28 11:27 | W.PN.HOSP.TC ---
Today's Communication/Plan
-
AM labs and then plan for CT Chest/Pelvis with IV contrast
Assessment / Plan
Assessment / Plan
Assessment:
Severe sepsis POA (leukocytosis, tachypnea, lactic acidosis)
ESBL Bacteremia with acute ESBL UTI
- Hx of BPH with recent prostate biopsy 11/24
- renal US: no hydronephrosis, suspicious renal mass or calculus
- continue Meropenem, day 4 per ID
- repeat Bcx NGTD
- s/p sepsis protocol IVF; lactate normalized
- given ongoing low grade temps; will perform CT pelvis with IV contrast (in 24 hours, to allow renal function to improve further)
Right basilar pneumonia with small parapneumonic effusion
Acute hypoxic respiratory insufficiency on 1L
- wean O2 as able
- continue Meropenem, day 4 per ID
- mucolytics, supportive care, IS/Acapella
- given ongoing low grade temps; will perform CT chest with IV contrast (in 24 hours, to allow renal function to improve further)
Acute diarrhea
- Could be viral
- C. Diff negative. Other stool studies pending
- diet: regular
WESTLEY in setting of sepsis
- renal US: no hydronephrosis, suspicious renal mass or calculus
- continue IVF
- hold nephrotoxins
- BS/SC protocol
- daily BMP, Cr improving, currently 2.1
Hyponatremia secondary to poor solute and
- Monitor with IV fluid
acute thrombocytopenia secondary to infection
- improving' continue to monitor on daily CBC
Daily alcohol use
- Drinks 3 beers per day
- Monitor for withdrawal
- MSAS protocol
DVT ppx: SC Heparin
Code: Full
Anticipated Discharge: > 48 hours
Subjective/Interval History
-
Date of Service: December 28, 2024
resting comfortably, no complaints at present except ongoing urinary incontinence
Objective Data
-
Labs:
Laboratory Results
12/28/24
05:47
WBC 10.9 H
Hgb 11.3 L
Hct 31.8 L
Plt Count 151 D
Sodium 137
Potassium 3.5
Chloride 102
Carbon Dioxide 25
BUN 48 H
Creatinine 2.1 H
Glucose 101 H
Calcium 8.4
Vital Signs:
Vital Signs
Temp Pulse Resp BP Pulse Ox
99.5 F 67 14 156/72 96
12/28/24 07:52 12/28/24 07:52 12/28/24 07:52 12/28/24 07:52 12/28/24 09:30
I&O
12/27/24 12/28/24 12/29/24
06:59 06:59 06:59
Intake Total 900 / 900 1920 / 1920 480 / 480
Output Total 1300 / 1300 1200 / 1200 850 / 850
Balance -400 / -400 720 / 720 -370 / -370
Physical Exam
-
General: No Apparent Distress
HEENT: Normocephalic and Atraumatic
Respiratory: Negative Wheezes
Cardiac: Regular Rhythm and S1/S2
GI: Soft
Musculoskeletal: No Edema
Neuro: AO x 3
Hematologic / Lymphatic: No Lymphadenopathy
Psych: Calm
Data Reviewed
-
Total Time Spent with Patient (in minutes): 42
Labs: Labs Reviewed by me
[2024-12-28 13:31] VITALS: BP 141/68; PULSE 59; O2SAT 97
--- NOTE | 2024-12-28 13:42 | PTOTSP ---
Pt is getting OOB to bathroom independently and is able to ambulate in hallway without an assistive device with stady gait. Encouraged pt to be OOB during the day to help build strength. No further skilled PT needs. Will sign off.
[2024-12-28 15:09] VITALS: BP 126/67
--- NOTE | 2024-12-28 15:40 | PTCARENOTE ---
patient c/o continuing urinary urgency and frequency, continues with poor appetite, some loose stool, independent, vss, will continue to monitor.
--- NOTE | 2024-12-28 16:21 | CM ---
CM following for discharge planning needs. Pt is on IV Meropenem Q8 hours; CT of lungs and abdomen to be done tomorrow to hopefully identify source of infection.
CM will need to coordinate with infusion company for pricing and patient teaching.
--- NOTE | 2024-12-28 17:33 | W.PN.URO.CBU ---
Today's Communication / Plan
-
consider ct wirh contrast once creatinine down to r/out abscess
Assessment / Plan
-
urologic hx of UTI and prostate bx 1 month ago bacteremia matching ur cx
dysuria
cough diarrhea
ARF
iv abs per ID
suspected pneumonia- medically treated
ARF- no evid of obstruction on u/s- creatinine down
Diagnosis
-
Date of Service: December 28, 2024
-
Patient Diagnosis:
Post Op Day:
Patient Diagnosis:
Post Op Day:
Patient Diagnosis:
Post Op Day:
Patient Diagnosis:
hx of UTI
hx of + prostate bx (prostate cancer) october 2024
admitted with dysuria/cough and diarrhea
Subjective
-
diarrhea dysuria no rigors chills
Objective
-
Vital Signs
Temp Pulse Resp BP Pulse Ox
98.5 F 81 14 126/67 95
12/28/24 15:09 12/28/24 15:09 12/28/24 15:09 12/28/24 15:09 12/28/24 15:09
Intake and Output
12/27/24 12/28/24 12/29/24
06:59 06:59 06:59
Intake Total 900 / 900 1920 / 1920 480 / 480
Output Total 1300 / 1300 1200 / 1200 850 / 850
Balance -400 / -400 720 / 720 -370 / -370
Intake:
Oral fluids 900 / 900 960 / 960 480 / 480
IV fluids (Total) 960 / 960
Output:
Urine, Voided 1300 / 1300 1200 / 1200 850 / 850
Other:
Number of unmeasured liquid
stools
Rectum 4
Laboratory Results
12/28/24 05:47
08/28/25 05:47
Review of Systems
-
Abdomen/GI: Diarrhea
: Dysuria and Frequency
Physical Exam
-
General - well developed, well nourished, no acute distress
Chest - clear bilaterally
Abdomen - soft, non-tender, positive bowel sounds, no CVAT, no incisional pain or distention
Genitalia - normal
Rectal - normal
Skin - warm & dry with no rash
Neuro - AOx3, no motor deficits
Extremities - no clubbing, no cyanosis, no edema
Incision - clean, dry
Dressing - clean, dry, intact
Counseling
-
observe no new interventions
Care Review
Data Reviewed
Discussed with: Hospitalist and Family
--- NOTE | 2024-12-28 18:14 | PTCARENOTE ---
pt did receive PRN Tylenol this shift (see MAR) for c/o frontal headache with good relief.
[2024-12-28] MEDS: SENOKOT 8.6 MG PO (22:02)
[2024-12-28] MEDS: VITAMIN B1 100 MG PO (22:03)
[2024-12-28 23:18] VITALS: BP 148/73
[2024-12-29] MEDS: MERREM 500 MG IV ×3 (02:49→17:23)
[2024-12-29] MEDS: STERILE WATER FOR INJECTION 10 ML IV ×3 (02:50→17:23)
[2024-12-29 06:46] LABS: Blood Urea Nitrogen 40 mg/dl (9-20); Calcium 8.1 mg/dl (8.4-10.2); Carbon Dioxide 28 mmol/L (22-30); Chloride 104 mmol/L (98-107); Estimated Creatinine Clearance 39 ml/min; Glucose 112 mg/dl (70-99); Potassium 3.5 mmol/L (3.5-5.1); Sodium 137 mmol/L (135-145); eGFR 38.19
[2024-12-29 07:00] VITALS: BP 156/70
[2024-12-29 07:31] LABS: Hematocrit 27.3 % (39.0-52.0); Hemoglobin 9.5 g/dL (13.0-18.0); Mean Corp Hgb Conc. 34.8 g/dL (33.0-37.0); Mean Corpuscular Volume 89.2 fL (80.0-94.0); Platelet Count 209 10^3/uL (130-400); Red Cell Dist. Width 13.4 % (11.5-14.5)
--- NOTE | 2024-12-29 07:43 | W.PN.URO.CBU ---
Today's Communication / Plan
-
PER HOSPITALIST POSSIBLE CT SCAN
Assessment / Plan
-
urologic hx of UTI and prostate bx 1 month ago bacteremia matching ur cx WBC UP HIGHER TEMP KELLY NO OBVIOUS ABSCESS BUT WITH WBC UP AND CREATININE DOWN WOULD CONSIDER IV CONTRASTED CT SCAN
dysuria
cough diarrhea
ARF
iv abs per ID
suspected pneumonia- medically treated
ARF- no evid of obstruction on u/s- creatinine down
Diagnosis
-
Date of Service: December 29, 2024
-
Patient Diagnosis:
Post Op Day:
Patient Diagnosis:
Post Op Day:
Patient Diagnosis:
Post Op Day:
Patient Diagnosis:
Post Op Day:
Patient Diagnosis:
hx of UTI
hx of + prostate bx (prostate cancer) october 2024
admitted with dysuria/cough and diarrhea
Subjective
-
STIL WEAK WIH FEVR LAST PM
Objective
-
Vital Signs
Temp Pulse Resp BP Pulse Ox
99.6 F 68 18 156/70 94
12/29/24 07:00 12/29/24 07:00 12/29/24 07:00 12/29/24 07:00 12/29/24 07:00
Intake and Output
12/28/24 12/29/24 12/30/24
06:59 06:59 06:59
Intake Total 1920 / 1920 1140 / 1140 1200 / 1200
Output Total 1200 / 1200 850 / 850
Balance 720 / 720 290 / 290 1200 / 1200
Intake:
Oral fluids 960 / 960 1140 / 1140 1200 / 1200
IV fluids (Total) 960 / 960
Output:
Urine, Voided 1200 / 1200 850 / 850
Other:
Number of approximated MODERATE 3
amounts of urine
Number of approximated LARGE 4
amounts of urine
Number of unmeasured liquid
stools
Rectum 4
Laboratory Results
12/29/24 05:48
12/29/24 05:48
Review of Systems
-
Constitutional: Fever
: Dysuria and Frequency
Physical Exam
-
General - well developed, well nourished, no acute distress
Chest - clear bilaterally
Abdomen - soft, non-tender, positive bowel sounds, no CVAT, no incisional pain or distention
Genitalia - normal
Rectal - normal PROSTAE NON TENDER NOIN INDURATED
Skin - warm & dry with no rash
Neuro - AOx3, no motor deficits
Extremities - no clubbing, no cyanosis, no edema
Incision - clean, dry
Dressing - clean, dry, intact
Care Review
Data Reviewed
Discussed with: Hospitalist and Nursing
[2024-12-29] MEDS: MIRALAX PO (09:43)
[2024-12-29] MEDS: MUCINEX 1200 MG PO ×2 (09:43→20:26)
[2024-12-29] MEDS: TYLENOL 650 MG PO (09:43)
[2024-12-29] MEDS: FOLVITE 1 MG PO (09:44)
[2024-12-29] MEDS: VITAMIN B1 100 MG PO ×2 (09:44→20:26)
[2024-12-29] MEDS: HEPARIN 5000 UNITS SC ×2 (09:44→20:26)
[2024-12-29] MEDS: FLOMAX 0.4 MG PO ×2 (09:45→20:26)
[2024-12-29] MEDS: OMNIPAQUE 50 ML PO (09:46)
[2024-12-29] MEDS: NSS 1000 IV ×2 (09:48→22:01)
[2024-12-29] MEDS: COREG 6.25 MG PO ×2 (09:49→20:26)
[2024-12-29] MEDS: SENOKOT PO ×2 (09:59→20:41)
[2024-12-29] MEDS: DUONEB 3 ML INH (10:33)
--- NOTE | 2024-12-29 13:12 | W.PN.HOSP.TC ---
Today's Communication/Plan
-
await CT results
continue Meropenem
Assessment / Plan
Assessment / Plan
Assessment:
Severe sepsis POA (leukocytosis, tachypnea, lactic acidosis)
ESBL Bacteremia with acute ESBL UTI
- Hx of BPH with recent prostate biopsy 11/24
- renal US: no hydronephrosis, suspicious renal mass or calculus
- continue Meropenem, day 5 per ID
- repeat Bcx NGTD
- s/p sepsis protocol IVF; lactate normalized
- given ongoing low grade temps; will perform CT abd/pelvis with IV contrast today
Right basilar pneumonia with small parapneumonic effusion
Acute hypoxic respiratory insufficiency on 1L
- wean O2 as able
- continue Meropenem, day 5 per ID
- mucolytics, supportive care, IS/Acapella
- given ongoing low grade temps; will perform CT chest with IV contrast today
Acute diarrhea
- Could be viral
- C. Diff negative. Other stool studies pending
- diet: regular
WEST[place] in setting of sepsis
- renal US: no hydronephrosis, suspicious renal mass or calculus
- continue IVF
- hold nephrotoxins
- BS/SC protocol
- daily BMP, Cr improving, currently 1.9
- reviewed with patient and regarding risks associated with contrast and renal failure
Hyponatremia secondary to poor solute and
- Monitor with IV fluid
acute thrombocytopenia secondary to infection
- improving' continue to monitor on daily CBC
Daily alcohol use
- Drinks 3 beers per day
- Monitor for withdrawal
- MSAS protocol
DVT ppx: SC Heparin
Code: Full
Anticipated Discharge: > 48 hours
Subjective/Interval History
-
Date of Service: December 29, 2024
resting comfortably
febrile overnight Tmax was 100.9
also with rising leukocytosis
for CT today
Objective Data
-
Labs:
Laboratory Results
12/29/24
05:48
WBC 11.7 H
Hgb 9.5 L
Hct 27.3 L
Plt Count 209 D
Sodium 137
Potassium 3.5
Chloride 104
Carbon Dioxide 28
BUN 40 H
Creatinine 1.9 H
Glucose 112 H
Calcium 8.1 L
Vital Signs:
Vital Signs
Temp Pulse Resp BP Pulse Ox
99.6 F 76 18 156/70 96
12/29/24 07:00 12/29/24 10:37 12/29/24 10:37 12/29/24 07:00 12/29/24 10:37
I&O
12/28/24 12/29/24 12/30/24
06:59 06:59 06:59
Intake Total 1920 / 1920 1140 / 1140 1200 / 1200
Output Total 1200 / 1200 850 / 850
Balance 720 / 720 290 / 290 1200 / 1200
Physical Exam
-
General: No Apparent Distress
HEENT: Normocephalic and Atraumatic
Respiratory: Negative Wheezes
Cardiac: Regular Rhythm
GI: Soft
Neuro: AO x 3
Psych: Calm
Data Reviewed
-
Total Time Spent with Patient (in minutes): 44
Labs: Labs Reviewed by me
--- NOTE | 2024-12-29 14:34 | PTCARENOTE ---
Patient ambulating with a steady gait. Patient with poor appetite, refused to eat breakfast, but will order lunch. Patient with exp wheezes B/L, respiratory notified for breathing treatment. Patient states, 'I feel better after the breathing
treatment.' Patient refused Senokot and Miralax due to loose stools. Patient requesting to shower, bathing supplies brought into room to shower. Spouse at bedside.
[2024-12-29 15:00] VITALS: BP 129/62
--- NOTE | 2024-12-29 15:37 | W.PN.ID1 ---
Date of Service
Date of Service: December 29, 2024
Today's Communication
Continue antibiotics per
Assessment / Plan
ESBL E. coli bacteremia
Complicated urinary tract infection
Right lower lobe infiltrate / pneumonia
Leukocytosis
Renal insufficiency
-improving
HTN
BPH
Arthritis
Prostate CA
Recommendations:
Continue meropenem 500 mg IV q.8 hours (dosed for renal insufficiency)
Repeat blood cultures without growth; continuing to follow
Follow white count and temperature curve. Temperature noted last evening
Follow for clinical improvement
����������������������������������������������������������
Chief Complaint
-: Bacteremia
Subjective / Review of Systems
Review of Systems: No Fever and No Chills
Vital Signs / Physical Exam
Vital Signs
Vital Signs
Temp Pulse Resp BP Pulse Ox
99.6 F 76 18 156/70 96
12/29/24 07:00 12/29/24 10:37 12/29/24 10:37 12/29/24 07:00 12/29/24 10:37
Physical Exam
Constitutional: Well Developed, Comfortable and Non-toxic
Eyes: Sclera Anicteric
Cardiovascular: S1/S2; Negative S3/S4
Pulmonary: Clear and Non Labored
Gastrointestinal: Soft, Non Tender and Non Distended
Genito-Urinary: Negative CVA Tenderness
Extremities: Negative Edema, Clubbing or Cyanosis
Neurological: Awake and Alert
Psychological: Calm
Objective Data
Lab Data
Lab Results
12/29/24 05:48
12/29/24 05:48
Estimated Creat Clear 39 ml/min 12/29/24 05:48
Lactic Acid 1.2 mmol/L (0.7-2.0) 12/24/24 22:42
Total Bilirubin 0.7 mg/dl (0.2-1.3) 12/25/24 05:56
AST 25 U/L (17-59) 12/25/24 05:56
ALT 25 U/L (0-50) 12/25/24 05:56
Alkaline Phosphatase 69 U/L (38-126) 12/25/24 05:56
Most recent labs reviewed.
Micro Results:
12/26/24 21:28 Salmonella/Shigella Culture - Preliminary
Feces/Stool Culture in Progress
Campylobacter Culture - Final
No Campylobacter species isolated.
Shiga Toxin Test - Final
No E. coli Shiga Toxin 1 or 2 detected.
12/26/24 06:20 Blood Culture - Preliminary
Blood/Venous No Growth in 72 hours- Final report to follow
12/25/24 17:17 Blood Culture - Preliminary
Blood/Venous Escherichia coli - ESBL
Gram Stain - Preliminary
12/24/24 11:35 Blood Culture - Final
Blood/Venous Escherichia coli - ESBL
Gram Stain - Final
12/24/24 11:22 Blood Culture - Final
Blood/Venous Escherichia coli - ESBL
Gram Stain - Final
12/25/24 17:17 Blood Culture - Preliminary
Blood/Venous Escherichia coli - ESBL
Gram Stain - Preliminary
12/26/24 21:28 C. difficile GDH Antigen & Toxins - Final
Feces/Stool Negative for toxigenic C.difficile
12/24/24 14:16 Urine Culture - Final
Urine Escherichia coli - ESBL
12/25/24 15:54 Respiratory Culture - Final
Sputum Gram Stain - Final
12/24/24 15:05 Legionella Urinary Antigen - Final
Urine Negative for Legionella pneumophila Serogroup 1 antigen.
A negative result does not rule out the possiblity of
Legionella infection due to other serogroups or species of
Legionella. Clinical correlation is recommended.
Streptococcus pneumoniae Antigen (M - Final
Negative for Streptococcus pneumoniae antigen.
A negative result does not exclude infection with
Streptococcus pneumoniae. Clinical correlation is
recommended.
Imaging:
12/29/2024 CT chest/abdomen/pelvis: Striated nephrogram within the right kidney, consistent with pyelonephritis. No hydronephrosis, and no evidence of perinephric abscess. Pronounced wall thickening involving the urinary bladder, consistent with
cystitis. Asymmetric atrophy of the left kidney relative to the right.
Trace pelvic free fluid, likely reactive. Small bilateral pleural effusions, right greater than left. Minimal groundglass opacity at each lung base, which may represent subsegmental atelectasis, aspiration, or pneumonia. Cholelithiasis.
12/20/2024 Renal ultrasound no hydronephrosis, suspicious renal mass or calculus. Left kidney is mildly atrophic.
12/20/2024 CXR (2 view): right basilar infiltrate noted. Blunting of the right costophrenic angle noted. No pneumothorax. Please see full dictation for additional detail.
[2024-12-29 23:00] VITALS: BP 150/65
[2024-12-30] MEDS: TYLENOL 650 MG PO ×2 (00:29→14:59)
[2024-12-30] MEDS: STERILE WATER FOR INJECTION 10 ML IV (03:00)
[2024-12-30] MEDS: MERREM 500 MG IV (03:00)
[2024-12-30 07:00] VITALS: BP 166/78
[2024-12-30] MEDS: NSS 1000 IV (08:53)
[2024-12-30] MEDS: MUCINEX 1200 MG PO ×2 (09:00→20:46)
[2024-12-30] MEDS: FOLVITE 1 MG PO (09:00)
[2024-12-30] MEDS: COREG 6.25 MG PO ×2 (09:00→20:48)
[2024-12-30] MEDS: VITAMIN B1 100 MG PO ×2 (09:00→20:46)
[2024-12-30] MEDS: MIRALAX PO (09:01)
[2024-12-30] MEDS: HEPARIN 5000 UNITS SC ×2 (09:01→20:47)
[2024-12-30] MEDS: FLOMAX 0.4 MG PO ×2 (09:01→20:47)
[2024-12-30] MEDS: SENOKOT PO ×2 (09:04→20:55)
[2024-12-30 09:37] LABS: Blood Urea Nitrogen 27 mg/dl (9-20); Calcium 7.0 mg/dl (8.4-10.2); Carbon Dioxide 22 mmol/L (22-30); Chloride 111 mmol/L (98-107); Estimated Creatinine Clearance 46 ml/min; Glucose 75 mg/dl (70-99); Potassium 3.3 mmol/L (3.5-5.1); Sodium 139 mmol/L (135-145); eGFR 46.93
[2024-12-30 09:40] LABS: Hematocrit 23.1 % (39.0-52.0); Hemoglobin 7.8 g/dL (13.0-18.0); Mean Corp Hgb Conc. 33.8 g/dL (33.0-37.0); Mean Corpuscular Volume 92.0 fL (80.0-94.0); Platelet Count 274 10^3/uL (130-400); Red Cell Dist. Width 13.7 % (11.5-14.5)
--- NOTE | 2024-12-30 11:05 | W.PN.HOSP.TC ---
Today's Communication/Plan
-
follow labs/fever curve
continue IV abx per ID
Imodium for loose stools
cap IVF and follow AM labs
Assessment / Plan
Assessment / Plan
Assessment:
Severe sepsis POA (leukocytosis, tachypnea, lactic acidosis)
ESBL Bacteremia with acute ESBL UTI
- Hx of BPH with recent prostate biopsy 11/24
- renal US: no hydronephrosis, suspicious renal mass or calculus
- continue Meropenem, day 6 per ID; plan to switch to Ertapenem and arrange home IV abx
- repeat Bcx NGTD
- s/p sepsis protocol IVF; lactate normalized
- CT with evidence of R sided pyelonephritis and cystitis
Right basilar pneumonia with small parapneumonic effusion
Acute hypoxic respiratory insufficiency on 1L
- wean O2 as able
- continue Meropenem, day 6 per ID; plan to switch to Ertapenem and arrange home IV abx
- mucolytics, supportive care, IS/Acapella
- CT chest without residual pneumonia, no abscess
Acute diarrhea
- Could be viral
- C. Diff negative. Other stool studies pending
- diet: regular
WEST[place] in setting of sepsis
- renal US: no hydronephrosis, suspicious renal mass or calculus
- hold nephrotoxins
- BS/SC protocol
- daily BMP, Cr improving, currently 1.6
- reviewed with patient and regarding risks associated with contrast and renal failure; monitor daily
Hyponatremia secondary to poor solute and
- Monitor with IV fluid
acute thrombocytopenia secondary to infection
- improving continue to monitor on daily CBC
Daily alcohol use
- Drinks 3 beers per day
- Monitor for withdrawal
- MSAS protocol
DVT ppx: SC Heparin
Code: Full
Anticipated Discharge: > 48 hours
Subjective/Interval History
-
Date of Service: December 30, 2024
resting comfortably
fever overnight to 101
Objective Data
-
Labs:
Laboratory Results
12/30/24
07:00
WBC 11.4 H
Hgb 7.8 L
Hct 23.1 L
Plt Count 274 D
Sodium 139
Potassium 3.3 L
Chloride 111 H
Carbon Dioxide 22
BUN 27 H
Creatinine 1.6 H
Glucose 75
Calcium 7.0 L
Vital Signs:
Vital Signs
Temp Pulse Resp BP Pulse Ox
99.1 F 63 18 166/78 97
12/30/24 07:00 12/30/24 07:00 12/30/24 07:00 12/30/24 07:00 12/30/24 07:00
I&O
12/29/24 12/30/24 12/31/24
06:59 06:59 06:59
Intake Total 1140 / 1140 5400 / 5400
Output Total 850 / 850 350 / 350
Balance 290 / 290 5050 / 5050
Physical Exam
-
General: No Apparent Distress
HEENT: Normocephalic and Atraumatic
Respiratory: Negative Wheezes
Cardiac: Regular Rhythm and S1/S2
GI: Soft and Nontender
Neuro: AO x 3
Psych: Calm
Data Reviewed
-
Total Time Spent with Patient (in minutes): 41
Labs: Labs Reviewed by me
[2024-12-30] MEDS: STERILE WATER FOR INJECTION IV ×2 (11:36→16:14)
[2024-12-30] MEDS: MERREM IV (11:36)
--- NOTE | 2024-12-30 11:54 | W.PN.ID1 ---
Date of Service
Date of Service: December 30, 2024
Today's Communication
Continue antibiotics.
Assessment / Plan
ESBL E. coli bacteremia
Complicated urinary tract infection
Right lower lobe infiltrate / pneumonia
Leukocytosis
Renal insufficiency
-improving
Fevers
- ?continued renal inflammation ?drug fever ?tumor fever ?other
HTN
BPH
Arthritis
Prostate CA
Recommendations:
Renal function improving.
Etiology of ongoing fevers unclear.
Transition to once daily or ertapenem in anticipation of home infusion.
Repeat blood cultures without growth; continuing to follow
Follow white count and temperature curve. Temperature noted last evening
Follow for clinical improvement
����������������������������������������������������������
Chief Complaint
-: Bacteremia
Subjective / Review of Systems
Patient seen and examined. Fever noted overnight, although patient denies feeling feverish or having any chills.
Vital Signs / Physical Exam
Vital Signs
Vital Signs
Temp Pulse Resp BP Pulse Ox
99.1 F 63 18 166/78 97
12/30/24 07:00 12/30/24 07:00 12/30/24 07:00 12/30/24 07:00 12/30/24 07:00
Physical Exam
Constitutional: Well Developed, Comfortable and Non-toxic
Eyes: Sclera Anicteric
Cardiovascular: S1/S2; Negative S3/S4
Pulmonary: Clear and Non Labored
Gastrointestinal: Soft, Non Tender and Non Distended
Genito-Urinary: Negative CVA Tenderness
Extremities: Negative Edema, Clubbing or Cyanosis
Neurological: Awake and Alert
Psychological: Calm
Objective Data
Lab Data
Lab Results
12/30/24 07:00
12/30/24 07:00
Estimated Creat Clear 46 ml/min 12/30/24 07:00
Lactic Acid 1.2 mmol/L (0.7-2.0) 12/24/24 22:42
Total Bilirubin 0.7 mg/dl (0.2-1.3) 12/25/24 05:56
AST 25 U/L (17-59) 12/25/24 05:56
ALT 25 U/L (0-50) 12/25/24 05:56
Alkaline Phosphatase 69 U/L (38-126) 12/25/24 05:56
Most recent labs reviewed.
Micro Results:
12/26/24 06:20 Blood Culture - Preliminary
Blood/Venous No Growth in 4 days- Final report to follow
12/26/24 21:28 Salmonella/Shigella Culture - Preliminary
Feces/Stool Culture in Progress
Campylobacter Culture - Final
No Campylobacter species isolated.
Shiga Toxin Test - Final
No E. coli Shiga Toxin 1 or 2 detected.
12/25/24 17:17 Blood Culture - Preliminary
Blood/Venous Escherichia coli - ESBL
Gram Stain - Preliminary
12/24/24 11:35 Blood Culture - Final
Blood/Venous Escherichia coli - ESBL
Gram Stain - Final
12/24/24 11:22 Blood Culture - Final
Blood/Venous Escherichia coli - ESBL
Gram Stain - Final
12/25/24 17:17 Blood Culture - Preliminary
Blood/Venous Escherichia coli - ESBL
Gram Stain - Preliminary
12/26/24 21:28 C. difficile GDH Antigen & Toxins - Final
Feces/Stool Negative for toxigenic C.difficile
12/24/24 14:16 Urine Culture - Final
Urine Escherichia coli - ESBL
12/25/24 15:54 Respiratory Culture - Final
Sputum Gram Stain - Final
12/24/24 15:05 Legionella Urinary Antigen - Final
Urine Negative for Legionella pneumophila Serogroup 1 antigen.
A negative result does not rule out the possiblity of
Legionella infection due to other serogroups or species of
Legionella. Clinical correlation is recommended.
Streptococcus pneumoniae Antigen (M - Final
Negative for Streptococcus pneumoniae antigen.
A negative result does not exclude infection with
Streptococcus pneumoniae. Clinical correlation is
recommended.
Imaging:
12/29/2024 CT chest/abdomen/pelvis: Striated nephrogram within the right kidney, consistent with pyelonephritis. No hydronephrosis, and no evidence of perinephric abscess. Pronounced wall thickening involving the urinary bladder, consistent with
cystitis. Asymmetric atrophy of the left kidney relative to the right.
Trace pelvic free fluid, likely reactive. Small bilateral pleural effusions, right greater than left. Minimal groundglass opacity at each lung base, which may represent subsegmental atelectasis, aspiration, or pneumonia. Cholelithiasis.
12/20/2024 Renal ultrasound no hydronephrosis, suspicious renal mass or calculus. Left kidney is mildly atrophic.
12/20/2024 CXR (2 view): right basilar infiltrate noted. Blunting of the right costophrenic angle noted. No pneumothorax. Please see full dictation for additional detail.
Care Review
Plan reviewed with: Physician (Hospitalist)
[2024-12-30] MEDS: INVANZ 60 MG IV (13:05)
--- NOTE | 2024-12-30 13:51 | W.PN.URO.CBU ---
Today's Communication / Plan
-
Continue abx
Assessment / Plan
-
69M urologic hx of UTI and prostate bx 1 month ago ESBL bacteremia matching urine cx
dysuria near resolved
WESTLEY sigificantly improved
CT scan showed possible ascending UTI, no abscess or collection in prostate or kidney
No evidence of obstructive uropathy
suspected pneumonia- medically treated
Continue abx course per ID
Trend fevers which have unfortunately continued - unclear why there is not more improvement. No evidence of an untreated infectious source
Diagnosis
-
Date of Service: December 30, 2024
-
hx of UTI
hx of + prostate bx (prostate cancer) october 2024
admitted with dysuria/cough and diarrhea
Suspected UTI
Subjective
-
fevers last night
Objective
-
Vital Signs
Temp Pulse Resp BP Pulse Ox
99.1 F 63 18 166/78 97
12/30/24 07:00 12/30/24 07:00 12/30/24 07:00 12/30/24 07:00 12/30/24 07:00
Intake and Output
12/29/24 12/30/24 12/31/24
06:59 06:59 06:59
Intake Total 1140 / 1140 5400 / 5400
Output Total 850 / 850 350 / 350
Balance 290 / 290 5050 / 5050
Intake:
Oral fluids 1140 / 1140 3600 / 3600
IV fluids (Total) 1800 / 1800
Output:
Urine, Voided 850 / 850 350 / 350
Other:
Number of approximated MODERATE 3 3
amounts of urine
Number of approximated LARGE 4
amounts of urine
Laboratory Results
12/30/24 07:00
12/30/24 07:00
Physical Exam
-
General - well developed, well nourished, no acute distress
Chest - clear
Abdomen - soft, non-tender
[2024-12-30 15:04] VITALS: BP 153/70
[2024-12-30 23:30] VITALS: BP 172/76
[2024-12-31] MEDS: STERILE WATER FOR INJECTION IV ×3 (02:30→17:09)
[2024-12-31 07:21] LABS: Hematocrit 25.0 % (39.0-52.0); Hemoglobin 8.7 g/dL (13.0-18.0); Mean Corp Hgb Conc. 34.8 g/dL (33.0-37.0); Mean Corpuscular Volume 90.6 fL (80.0-94.0); Platelet Count 333 10^3/uL (130-400); Red Cell Dist. Width 13.5 % (11.5-14.5)
[2024-12-31 07:51] LABS: Blood Urea Nitrogen 26 mg/dl (9-20); Calcium 8.1 mg/dl (8.4-10.2); Carbon Dioxide 21 mmol/L (22-30); Chloride 105 mmol/L (98-107); Estimated Creatinine Clearance 46 ml/min; Glucose 91 mg/dl (70-99); Potassium 3.9 mmol/L (3.5-5.1); Sodium 135 mmol/L (135-145); eGFR 46.93
[2024-12-31 08:29] VITALS: BP 164/76
[2024-12-31] MEDS: SENOKOT PO ×2 (09:02→20:27)
[2024-12-31] MEDS: MIRALAX PO (09:02)
[2024-12-31] MEDS: COREG 6.25 MG PO ×2 (09:09→20:13)
[2024-12-31] MEDS: FOLVITE 1 MG PO (09:09)
[2024-12-31] MEDS: HEPARIN 5000 UNITS SC ×2 (09:10→20:14)
[2024-12-31] MEDS: FLOMAX 0.4 MG PO ×2 (09:10→20:14)
[2024-12-31] MEDS: MUCINEX 1200 MG PO ×2 (09:10→20:13)
[2024-12-31] MEDS: VITAMIN B1 100 MG PO ×2 (09:10→20:13)
--- NOTE | 2024-12-31 11:19 | W.PN.ID1 ---
Date of Service
Date of Service: December 31, 2024
Today's Communication
Continue antibiotics.
Assessment / Plan
ESBL E. coli bacteremia
Complicated urinary tract infection / (R) pyelonephritis on CT
Right lower lobe infiltrate / pneumonia
Leukocytosis
Renal insufficiency
-improving
Fevers
- ?continued renal inflammation ?drug fever ?tumor fever ?other
HTN
BPH
Arthritis
Prostate CA
Recommendations:
Renal function improving.
Etiology of ongoing fevers unclear.
Continue ertapenem.
Repeat blood cultures without growth; continuing to follow
Follow white count and temperature curve. Temperature noted yesterday afternoon.
Follow for clinical improvement
����������������������������������������������������������
Chief Complaint
-: Bacteremia
Subjective / Review of Systems
Reports occasional loose stool
Review of Systems: No Fever and No Chills
Vital Signs / Physical Exam
Vital Signs
Vital Signs
Temp Pulse Resp BP Pulse Ox
99.2 F 69 16 164/76 97
12/31/24 08:29 12/31/24 08:29 12/31/24 08:29 12/31/24 08:29 12/31/24 08:29
Physical Exam
Constitutional: No Acute Distress, Comfortable and Non-toxic
Eyes: Sclera Anicteric
Pulmonary: Non Labored
Gastrointestinal: Non Distended
Extremities: Negative Edema, Clubbing or Cyanosis
Neurological: Awake and Alert
Psychological: Calm
Objective Data
Lab Data
Lab Results
12/31/24 05:54
12/31/24 05:54
Estimated Creat Clear 46 ml/min 12/31/24 05:54
Lactic Acid 1.2 mmol/L (0.7-2.0) 12/24/24 22:42
Total Bilirubin 0.7 mg/dl (0.2-1.3) 12/25/24 05:56
AST 25 U/L (17-59) 12/25/24 05:56
ALT 25 U/L (0-50) 12/25/24 05:56
Alkaline Phosphatase 69 U/L (38-126) 12/25/24 05:56
Most recent labs reviewed.
Micro Results:
12/26/24 06:20 Blood Culture - Final
Blood/Venous No Growth - Final Report
12/26/24 21:28 Salmonella/Shigella Culture - Final
Feces/Stool No Salmonella, Shigella, Aeromonas or Plesiomonas species
isolated.
Campylobacter Culture - Final
No Campylobacter species isolated.
Shiga Toxin Test - Final
No E. coli Shiga Toxin 1 or 2 detected.
12/25/24 17:17 Blood Culture - Preliminary
Blood/Venous Escherichia coli - ESBL
Gram Stain - Preliminary
12/24/24 11:35 Blood Culture - Final
Blood/Venous Escherichia coli - ESBL
Gram Stain - Final
12/24/24 11:22 Blood Culture - Final
Blood/Venous Escherichia coli - ESBL
Gram Stain - Final
12/25/24 17:17 Blood Culture - Preliminary
Blood/Venous Escherichia coli - ESBL
Gram Stain - Preliminary
12/26/24 21:28 C. difficile GDH Antigen & Toxins - Final
Feces/Stool Negative for toxigenic C.difficile
12/24/24 14:16 Urine Culture - Final
Urine Escherichia coli - ESBL
12/25/24 15:54 Respiratory Culture - Final
Sputum Gram Stain - Final
12/24/24 15:05 Legionella Urinary Antigen - Final
Urine Negative for Legionella pneumophila Serogroup 1 antigen.
A negative result does not rule out the possiblity of
Legionella infection due to other serogroups or species of
Legionella. Clinical correlation is recommended.
Streptococcus pneumoniae Antigen (M - Final
Negative for Streptococcus pneumoniae antigen.
A negative result does not exclude infection with
Streptococcus pneumoniae. Clinical correlation is
recommended.
Imaging:
12/29/2024 CT chest/abdomen/pelvis: Striated nephrogram within the right kidney, consistent with pyelonephritis. No hydronephrosis, and no evidence of perinephric abscess. Pronounced wall thickening involving the urinary bladder, consistent with
cystitis. Asymmetric atrophy of the left kidney relative to the right.
Trace pelvic free fluid, likely reactive. Small bilateral pleural effusions, right greater than left. Minimal groundglass opacity at each lung base, which may represent subsegmental atelectasis, aspiration, or pneumonia. Cholelithiasis.
12/20/2024 Renal ultrasound no hydronephrosis, suspicious renal mass or calculus. Left kidney is mildly atrophic.
12/20/2024 CXR (2 view): right basilar infiltrate noted. Blunting of the right costophrenic angle noted. No pneumothorax. Please see full dictation for additional detail.
[2024-12-31 12:35] LABS: Nucleated Red Blood Cells % 0 % (-)
[2024-12-31] MEDS: INVANZ 60 MG IV (12:48)
--- NOTE | 2024-12-31 13:16 | W.PN.URO.CBU ---
Today's Communication / Plan
-
Trend fever and WBC
Transrectal US tomorrow if not improving
Assessment / Plan
-
69M urologic hx of UTI and prostate bx 1 month ago ESBL bacteremia matching urine cx
dysuria resolved
WESTLEY significantly improved
CT scan showed possible ascending UTI, no abscess or collection in prostate or kidney
No evidence of obstructive uropathy
Continue abx course per ID
Last fever yesterday and WBC slightly increased today - unclear why there is not more improvement. No evidence of an untreated infectious source
Advised transrectal US as a more sensitive test for prostate abscess
Patient is opposed to US as he is feeling better today
He would be okay with getting US tomorrow if he does not have continued improvement
Diagnosis
-
Date of Service: December 31, 2024
-
Patient Diagnosis:
Post Op Day:
hx of UTI
hx of + prostate bx (prostate cancer) october 2024
admitted with dysuria/cough and diarrhea
Suspected UTI
Suspected pneumonia
Subjective
-
feeling better today despite WBC higher
Objective
-
Vital Signs
Temp Pulse Resp BP Pulse Ox
99.2 F 69 16 164/76 97
12/31/24 08:29 12/31/24 08:29 12/31/24 08:29 12/31/24 08:29 12/31/24 08:29
Intake and Output
12/30/24 12/31/24 01/01/25
06:59 06:59 06:59
Intake Total 5400 / 5400 960 / 960
Output Total 350 / 350
Balance 5050 / 5050 960 / 960
Intake:
Oral fluids 3600 / 3600 960 / 960
IV fluids (Total) 1800 / 1800
Output:
Urine, Voided 350 / 350
Other:
Number of approximated MODERATE 3 2
amounts of urine
Number of approximated LARGE 4
amounts of urine
Laboratory Results
12/31/24 05:54
12/31/24 05:54
Physical Exam
-
General - well developed, well nourished, no acute distress
Chest - clear
Abdomen - soft, non-tender
--- NOTE | 2024-12-31 13:50 | W.PN.HOSP.TC ---
Today's Communication/Plan
-
continue IV abx
follow labs/fever curve
possible transrectal US per Urology
Assessment / Plan
Assessment / Plan
Assessment:
Severe sepsis POA (leukocytosis, tachypnea, lactic acidosis)
ESBL Bacteremia with acute ESBL UTI
- Hx of BPH with recent prostate biopsy 11/24
- renal US: no hydronephrosis, suspicious renal mass or calculus
- continue Ertapenem, day 7 per ID; CM to arrange home IV abx
- repeat Bcx NGTD
- s/p sepsis protocol IVF; lactate normalized
- CT with evidence of R sided pyelonephritis and cystitis
- possible transrectal US per Urology
Right basilar pneumonia with small parapneumonic effusion
Acute hypoxic respiratory insufficiency on 1L
- wean O2 as able
- continue Ertapenem, day 7 per ID
- mucolytics, supportive care, IS/Acapella
- CT chest without residual pneumonia, no abscess
Acute diarrhea
- Could be viral
- C. Diff negative. Other stool studies pending
- diet: regular
WESTLEY in setting of sepsis
- renal US: no hydronephrosis, suspicious renal mass or calculus
- hold nephrotoxins
- BS/SC protocol
- daily BMP, Cr improving, currently 1.6 and stable
- reviewed with patient and regarding risks associated with contrast and renal failure; monitor daily
Hyponatremia secondary to poor solute and
- Monitor with IV fluid
acute thrombocytopenia secondary to infection
- improving continue to monitor on daily CBC
Daily alcohol use
- Drinks 3 beers per day
- Monitor for withdrawal
- MSAS protocol
DVT ppx: SC Heparin
Code: Full
Anticipated Discharge: > 48 hours
Subjective/Interval History
-
Date of Service: December 31, 2024
occasional loose stool, otherwise no complaint
Feels better overall
Objective Data
-
Labs:
Laboratory Results
12/31/24
05:54
WBC 15.0 H
Hgb 8.7 L
Hct 25.0 L
Plt Count 333 D
Sodium 135
Potassium 3.9
Chloride 105
Carbon Dioxide 21 L
BUN 26 H
Creatinine 1.6 H
Glucose 91
Calcium 8.1 L
Vital Signs:
Vital Signs
Temp Pulse Resp BP Pulse Ox
99.2 F 69 16 164/76 97
12/31/24 08:29 12/31/24 08:29 12/31/24 08:29 12/31/24 08:29 12/31/24 08:29
I&O
12/30/24 12/31/24 01/01/25
06:59 06:59 06:59
Intake Total 5400 / 5400 960 / 960
Output Total 350 / 350
Balance 5050 / 5050 960 / 960
Physical Exam
-
General: No Apparent Distress
HEENT: Normocephalic and Atraumatic
Respiratory: Decreased Breath Sounds; Negative Wheezes
Cardiac: Regular Rhythm and S1/S2
GI: Soft and Nontender
Neuro: AO x 3
Psych: Calm
Data Reviewed
-
Total Time Spent with Patient (in minutes): 42
Labs: Labs Reviewed by me
[2024-12-31 16:43] VITALS: BP 168/79
--- NOTE | 2024-12-31 16:54 | CM ---
Pt for discharge with IV antibiotics .
IV script obtained from chart.
Spoke with patient in room. Pt agreeable to home with home infusion.
Choice given . Pt requested [facility] .
Spoke with AJ at [facility] and notified clinical faxed over to [phone].
Needs line information faxed after laced.
PLAN Set up [facility]
[2024-12-31 23:00] VITALS: BP 153/81
[2025-01-01 05:40] LABS: Hematocrit 26.2 % (39.0-52.0); Hemoglobin 8.9 g/dL (13.0-18.0); Mean Corp Hgb Conc. 34.0 g/dL (33.0-37.0); Mean Corpuscular Volume 91.3 fL (80.0-94.0); Platelet Count 365 10^3/uL (130-400); Red Cell Dist. Width 13.1 % (11.5-14.5)
[2025-01-01 06:01] LABS: Blood Urea Nitrogen 22 mg/dl (9-20); Calcium 8.4 mg/dl (8.4-10.2); Carbon Dioxide 26 mmol/L (22-30); Chloride 105 mmol/L (98-107); Estimated Creatinine Clearance 46 ml/min; Glucose 98 mg/dl (70-99); Potassium 4.2 mmol/L (3.5-5.1); Sodium 136 mmol/L (135-145); eGFR 46.93
[2025-01-01] MEDS: STERILE WATER FOR INJECTION IV ×3 (06:35→17:27)
[2025-01-01 07:19] VITALS: BP 160/69
[2025-01-01] MEDS: FOLVITE 1 MG PO (08:53)
[2025-01-01] MEDS: HEPARIN 5000 UNITS SC ×2 (08:54→20:19)
[2025-01-01] MEDS: VITAMIN B1 100 MG PO ×2 (08:54→20:18)
[2025-01-01] MEDS: FLOMAX 0.4 MG PO ×2 (08:54→20:18)
[2025-01-01] MEDS: COREG 6.25 MG PO ×2 (08:54→20:19)
[2025-01-01] MEDS: MIRALAX PO (08:58)
[2025-01-01] MEDS: MUCINEX PO ×2 (08:59→20:14)
[2025-01-01] MEDS: SENOKOT PO ×2 (08:59→20:14)
--- NOTE | 2025-01-01 10:15 | W.PN.HOSP.TC ---
Today's Communication/Plan
-
follow Urology recs re: possible transrectal biopsy
continue IV abx per ID: setup home infusions
follow WBC and fever curve
Assessment / Plan
Assessment / Plan
Assessment:
Severe sepsis POA (leukocytosis, tachypnea, lactic acidosis)
ESBL Bacteremia with acute ESBL UTI
- Hx of BPH with recent prostate biopsy 11/24
- renal US: no hydronephrosis, suspicious renal mass or calculus
- continue Ertapenem, day 8 per ID; CM to arrange home IV abx
- repeat Bcx NGTD
- s/p sepsis protocol IVF; lactate normalized
- CT with evidence of R sided pyelonephritis and cystitis, no evidence of prostate abscess
- possible transrectal US per Urology for further assessment of possible prostate abscess
Right basilar pneumonia with small parapneumonic effusion
Acute hypoxic respiratory insufficiency on 1L
- wean O2 as able
- continue Ertapenem, day 8 per ID
- mucolytics, supportive care, IS/Acapella
- CT chest without residual pneumonia, no abscess
Acute diarrhea
- Could be viral
- C. Diff negative. Other stool studies pending
- diet: regular
WESTLEY in setting of sepsis
- renal US: no hydronephrosis, suspicious renal mass or calculus
- hold nephrotoxins
- BS/SC protocol
- daily BMP, Cr improving, currently 1.6 and stable
- unknown creat baseline, will look up outpatient records
Hyponatremia secondary to poor solute and
- resolved
acute thrombocytopenia secondary to infection
- resolved
Daily alcohol use
- Drinks 3 beers per day
- Monitor for withdrawal
- MSAS protocol
DVT ppx: SC Heparin
Code: Full
Anticipated Discharge: 24 - 48 hours
Subjective/Interval History
-
Date of Service: January 01, 2025
fever free since 12/30 3pm
Wbc 12 from 15
denies any complaints
Objective Data
-
Labs:
Laboratory Results
01/01/25
05:13
WBC 12.0 H
Hgb 8.9 L
Hct 26.2 L
Plt Count 365
Sodium 136
Potassium 4.2
Chloride 105
Carbon Dioxide 26
BUN 22 H
Creatinine 1.6 H
Glucose 98
Calcium 8.4
Vital Signs:
Vital Signs
Temp Pulse Resp BP Pulse Ox
98.9 F 66 18 160/69 97
01/01/25 07:19 01/01/25 07:19 01/01/25 07:19 01/01/25 07:19 01/01/25 07:19
I&O
12/31/24 01/01/25 01/02/25
06:59 06:59 06:59
Intake Total 960 / 960 480 / 480
Balance 960 / 960 480 / 480
Physical Exam
-
General: No Apparent Distress
HEENT: Normocephalic and Atraumatic
Respiratory: Negative Wheezes
Cardiac: Regular Rhythm and S1/S2
GI: Soft
Neuro: AO x 3
Psych: Calm
Data Reviewed
-
Total Time Spent with Patient (in minutes): 42
Labs: Labs Reviewed by me
--- NOTE | 2025-01-01 11:54 | W.PN.ID1 ---
Date of Service
Date of Service: January 01, 2025
Today's Communication
Continue antibiotics.
Assessment / Plan
ESBL E. coli bacteremia
Complicated urinary tract infection / (R) pyelonephritis on CT
Right lower lobe infiltrate / pneumonia
Leukocytosis
Renal insufficiency
-improving
Fevers
- ?continued renal inflammation ?drug fever ?tumor fever ?other
HTN
BPH
Arthritis
Prostate CA
Recommendations:
Renal function improving.
Fevers down. Leukocytosis improved.
Continue ertapenem through 01/12/2025. Home infusion sheet placed on her chart.
Repeat blood cultures without growth; continuing to follow
Follow white count and temperature curve.
Place PICC line
����������������������������������������������������������
Chief Complaint
-: Bacteremia and Other (Right pyelonephritis)
Subjective / Review of Systems
Review of Systems: No Fever and No Chills
Vital Signs / Physical Exam
Vital Signs
Vital Signs
Temp Pulse Resp BP Pulse Ox
98.9 F 66 18 160/69 97
01/01/25 07:19 01/01/25 07:19 01/01/25 07:19 01/01/25 07:19 01/01/25 07:19
Physical Exam
Constitutional: No Acute Distress, Comfortable and Non-toxic
Eyes: Sclera Anicteric
Pulmonary: Non Labored
Gastrointestinal: Non Distended
Extremities: Negative Edema, Clubbing or Cyanosis
Neurological: Awake and Alert
Psychological: Calm
Objective Data
Lab Data
Lab Results
01/01/25 05:13
01/01/25 05:13
Estimated Creat Clear 46 ml/min 01/01/25 05:13
Lactic Acid 1.2 mmol/L (0.7-2.0) 12/24/24 22:42
Total Bilirubin 0.7 mg/dl (0.2-1.3) 12/25/24 05:56
AST 25 U/L (17-59) 12/25/24 05:56
ALT 25 U/L (0-50) 12/25/24 05:56
Alkaline Phosphatase 69 U/L (38-126) 12/25/24 05:56
Most recent labs reviewed.
Micro Results:
12/26/24 06:20 Blood Culture - Final
Blood/Venous No Growth - Final Report
12/26/24 21:28 Salmonella/Shigella Culture - Final
Feces/Stool No Salmonella, Shigella, Aeromonas or Plesiomonas species
isolated.
Campylobacter Culture - Final
No Campylobacter species isolated.
Shiga Toxin Test - Final
No E. coli Shiga Toxin 1 or 2 detected.
12/25/24 17:17 Blood Culture - Preliminary
Blood/Venous Escherichia coli - ESBL
Gram Stain - Preliminary
12/24/24 11:35 Blood Culture - Final
Blood/Venous Escherichia coli - ESBL
Gram Stain - Final
12/24/24 11:22 Blood Culture - Final
Blood/Venous Escherichia coli - ESBL
Gram Stain - Final
12/25/24 17:17 Blood Culture - Preliminary
Blood/Venous Escherichia coli - ESBL
Gram Stain - Preliminary
12/26/24 21:28 C. difficile GDH Antigen & Toxins - Final
Feces/Stool Negative for toxigenic C.difficile
12/24/24 14:16 Urine Culture - Final
Urine Escherichia coli - ESBL
12/25/24 15:54 Respiratory Culture - Final
Sputum Gram Stain - Final
12/24/24 15:05 Legionella Urinary Antigen - Final
Urine Negative for Legionella pneumophila Serogroup 1 antigen.
A negative result does not rule out the possiblity of
Legionella infection due to other serogroups or species of
Legionella. Clinical correlation is recommended.
Streptococcus pneumoniae Antigen (M - Final
Negative for Streptococcus pneumoniae antigen.
A negative result does not exclude infection with
Streptococcus pneumoniae. Clinical correlation is
recommended.
Imaging:
12/29/2024 CT chest/abdomen/pelvis: Striated nephrogram within the right kidney, consistent with pyelonephritis. No hydronephrosis, and no evidence of perinephric abscess. Pronounced wall thickening involving the urinary bladder, consistent with
cystitis. Asymmetric atrophy of the left kidney relative to the right.
Trace pelvic free fluid, likely reactive. Small bilateral pleural effusions, right greater than left. Minimal groundglass opacity at each lung base, which may represent subsegmental atelectasis, aspiration, or pneumonia. Cholelithiasis.
12/20/2024 Renal ultrasound no hydronephrosis, suspicious renal mass or calculus. Left kidney is mildly atrophic.
12/20/2024 CXR (2 view): right basilar infiltrate noted. Blunting of the right costophrenic angle noted. No pneumothorax. Please see full dictation for additional detail.
[2025-01-01] MEDS: INVANZ 60 MG IV (12:06)
--- NOTE | 2025-01-01 14:27 | W.PN.URO.CBU ---
Today's Communication / Plan
-
Continue abx course per ID
Getting outpatient ertapenem infusion
Outpatient follow up with Dr. Juan
Stable for discharge from standpoint
Assessment / Plan
-
69M urologic hx of UTI and prostate bx 1 month ago, admitted with ESBL bacteremia matching urine cx
dysuria resolved
WESTLEY significantly improved
CT scan showed possible ascending UTI, no abscess or collection in prostate or kidney
No evidence of obstructive uropathy
WBC improving
Continue abx course per ID
Getting outpatient ertapenem infusion
Outpatient follow up with Dr. Juan
Diagnosis
-
Date of Service: January 01, 2025
-
hx of UTI
hx of + prostate bx (prostate cancer) october 2024
admitted with dysuria/cough and diarrhea
Suspected UTI
Suspected pneumonia
Subjective
-
feeling well
no subj fever
Objective
-
Vital Signs
Temp Pulse Resp BP Pulse Ox
98.9 F 66 18 160/69 97
01/01/25 07:19 01/01/25 07:19 01/01/25 07:19 01/01/25 07:19 01/01/25 07:19
Intake and Output
12/31/24 01/01/25 01/02/25
06:59 06:59 06:59
Intake Total 960 / 960 480 / 480
Balance 960 / 960 480 / 480
Intake:
Oral fluids 960 / 960 480 / 480
Other:
Number of approximated MODERATE 2 2
amounts of urine
Laboratory Results
01/01/25 05:13
01/01/25 05:13
Physical Exam
-
General - well developed, well nourished, no acute distress
Chest - ubnlabored
[2025-01-01 15:14] VITALS: BP 174/81
[2025-01-01 15:22] VITALS: BP 165/82
[2025-01-01] MEDS: TYLENOL 650 MG PO (15:25)
[2025-01-01 23:40] VITALS: BP 151/70
[2025-01-02] MEDS: STERILE WATER FOR INJECTION IV ×2 (03:07→09:45)
[2025-01-02 07:33] VITALS: BP 182/83
[2025-01-02 08:37] LABS: Hematocrit 27.1 % (39.0-52.0); Hemoglobin 9.2 g/dL (13.0-18.0); Mean Corp Hgb Conc. 33.9 g/dL (33.0-37.0); Mean Corpuscular Volume 92.2 fL (80.0-94.0); Platelet Count 449 10^3/uL (130-400); Red Cell Dist. Width 13.0 % (11.5-14.5)
[2025-01-02 08:57] LABS: Blood Urea Nitrogen 19 mg/dl (9-20); Calcium 8.8 mg/dl (8.4-10.2); Carbon Dioxide 27 mmol/L (22-30); Chloride 104 mmol/L (98-107); Estimated Creatinine Clearance 46 ml/min; Glucose 97 mg/dl (70-99); Potassium 4.4 mmol/L (3.5-5.1); Sodium 135 mmol/L (135-145); eGFR 46.93
[2025-01-02] MEDS: MIRALAX PO (09:43)
[2025-01-02] MEDS: MUCINEX 1200 MG PO (09:44)
[2025-01-02] MEDS: FOLVITE 1 MG PO (09:44)
[2025-01-02] MEDS: SENOKOT PO (09:44)
[2025-01-02] MEDS: VITAMIN B1 100 MG PO (09:44)
[2025-01-02] MEDS: HEPARIN 5000 UNITS SC (09:45)
[2025-01-02] MEDS: COREG 6.25 MG PO (09:45)
[2025-01-02] MEDS: FLOMAX 0.4 MG PO (09:45)
[2025-01-02] MEDS: INVANZ 60 MG IV (12:59)
--- NOTE | 2025-01-02 13:27 | W.PN.ID1 ---
Addendum entered and electronically signed by Brian Lind DO 01/03/25 07:23:
Clarification of drug resistance (CDI response):
'ESBL E. coli bacteremia' relates to resistance of this organism to most beta-lactams and is notated as 'Extended Spectrum Beta Lactamase' resistance. This organism is intrinsically resistant to vancomycin. It was also noted to be resistant to the
fluoroquinolones, tetracyclines and sulfonamides.
Original Note:
Date of Service
Date of Service: January 02, 2025
Today's Communication
Continue current course of ertapenem.
Assessment / Plan
ESBL E. coli bacteremia
Complicated urinary tract infection / (R) pyelonephritis on CT
Right lower lobe infiltrate / pneumonia
Leukocytosis
Renal insufficiency
-improving
Fevers
- ?continued renal inflammation ?drug fever ?tumor fever ?other
HTN
BPH
Arthritis
Prostate CA
Recommendations:
Leukocytosis resolved. Patient has remained afebrile.
Renal function stable.
Continue ertapenem through 01/12/2025. Home infusion sheet placed on her chart.
����������������������������������������������������������
Chief Complaint
-: Bacteremia and Other (Right pyelonephritis)
Subjective / Review of Systems
Review of Systems: No Fever and No Chills
Vital Signs / Physical Exam
Vital Signs
Vital Signs
Temp Pulse Resp BP Pulse Ox
98.3 F 63 18 182/83 98
01/02/25 07:33 01/02/25 07:33 01/02/25 07:33 01/02/25 07:33 01/02/25 07:33
Physical Exam
Constitutional: No Acute Distress, Comfortable and Non-toxic
Eyes: Sclera Anicteric
Pulmonary: Non Labored
Gastrointestinal: Non Distended
Extremities: Negative Edema, Clubbing or Cyanosis
Neurological: Awake and Alert
Psychological: Calm
Objective Data
Lab Data
Lab Results
01/02/25 07:23
01/02/25 07:23
Estimated Creat Clear 46 ml/min 01/02/25 07:23
Lactic Acid 1.2 mmol/L (0.7-2.0) 12/24/24 22:42
Total Bilirubin 0.7 mg/dl (0.2-1.3) 12/25/24 05:56
AST 25 U/L (17-59) 12/25/24 05:56
ALT 25 U/L (0-50) 12/25/24 05:56
Alkaline Phosphatase 69 U/L (38-126) 12/25/24 05:56
Most recent labs reviewed.
Micro Results:
12/25/24 17:17 Blood Culture - Final
Blood/Venous Escherichia coli - ESBL
Gram Stain - Final
12/25/24 17:17 Blood Culture - Final
Blood/Venous Escherichia coli - ESBL
Gram Stain - Final
12/26/24 21:28 Salmonella/Shigella Culture - Final
Feces/Stool No Salmonella, Shigella, Aeromonas or Plesiomonas species
isolated.
Campylobacter Culture - Final
No Campylobacter species isolated.
Shiga Toxin Test - Final
No E. coli Shiga Toxin 1 or 2 detected.
12/26/24 06:20 Blood Culture - Final
Blood/Venous No Growth - Final Report
12/24/24 11:35 Blood Culture - Final
Blood/Venous Escherichia coli - ESBL
Gram Stain - Final
12/24/24 11:22 Blood Culture - Final
Blood/Venous Escherichia coli - ESBL
Gram Stain - Final
12/26/24 21:28 C. difficile GDH Antigen & Toxins - Final
Feces/Stool Negative for toxigenic C.difficile
12/24/24 14:16 Urine Culture - Final
Urine Escherichia coli - ESBL
08/25/25 15:54 Respiratory Culture - Final
Sputum Gram Stain - Final
12/24/24 15:05 Legionella Urinary Antigen - Final
Urine Negative for Legionella pneumophila Serogroup 1 antigen.
A negative result does not rule out the possiblity of
Legionella infection due to other serogroups or species of
Legionella. Clinical correlation is recommended.
Streptococcus pneumoniae Antigen (M - Final
Negative for Streptococcus pneumoniae antigen.
A negative result does not exclude infection with
Streptococcus pneumoniae. Clinical correlation is
recommended.
Imaging:
12/29/2024 CT chest/abdomen/pelvis: Striated nephrogram within the right kidney, consistent with pyelonephritis. No hydronephrosis, and no evidence of perinephric abscess. Pronounced wall thickening involving the urinary bladder, consistent with
cystitis. Asymmetric atrophy of the left kidney relative to the right.
Trace pelvic free fluid, likely reactive. Small bilateral pleural effusions, right greater than left. Minimal groundglass opacity at each lung base, which may represent subsegmental atelectasis, aspiration, or pneumonia. Cholelithiasis.
12/20/2024 Renal ultrasound no hydronephrosis, suspicious renal mass or calculus. Left kidney is mildly atrophic.
12/20/2024 CXR (2 view): right basilar infiltrate noted. Blunting of the right costophrenic angle noted. No pneumothorax. Please see full dictation for additional detail.
--- NOTE | 2025-01-02 13:31 | W.PN.HOSP.TC ---
Today's Communication/Plan
-
d/c home abx
Assessment / Plan
Assessment / Plan
Severe sepsis POA (leukocytosis, tachypnea, lactic acidosis)
ESBL Bacteremia with acute ESBL UTI
- Hx of BPH with recent prostate biopsy 11/24
- renal US: no hydronephrosis, suspicious renal mass or calculus
- continue Ertapenem, patient to remain on IV antibiotic postdischarge with last dose on 01/12
- repeat Bcx NGTD
- CT with evidence of R sided pyelonephritis and cystitis, no evidence of prostate abscess
Right basilar pneumonia with small parapneumonic effusion
Acute hypoxic respiratory insufficiency on 1L
- weaned off o2
- mucolytics, supportive care, IS/Acapella
- CT chest without residual pneumonia, no abscess
Abx related diarrhea
- C. Diff negative. stool studies neg.
- diet: regular
WESTLEY in setting of sepsis
- renal US: no hydronephrosis, suspicious renal mass or calculus
- hold nephrotoxins
- BS/SC protocol
- daily BMP, Cr improving, currently 1.6 and stable
- unknown creat baseline, will look up outpatient records
Hyponatremia secondary to poor solute and
- resolved
acute thrombocytopenia secondary to infection
- resolved
Daily alcohol use
- Drinks 3 beers per day
- Monitor for withdrawal
- MSAS protocol
DVT ppx: SC Heparin
Code: Full
More than 30 minutes spent in discharge including
Final examination of the patient
Summarizing hospital stay
Instructions for continuing care to all relevant caregivers
Preparation of discharge records, prescriptions, and referral forms
Total time spent (in minutes): 40 mins
Anticipated Discharge: Today
Subjective/Interval History
-
Date of Service: January 02, 2025
No complaints overnight
remains afebrile
Objective Data
-
Labs:
Laboratory Results
01/02/25
07:23
WBC 10.8
Hgb 9.2 L
Hct 27.1 L
Plt Count 449 H D
Sodium 135
Potassium 4.4
Chloride 104
Carbon Dioxide 27
BUN 19
Creatinine 1.6 H
Glucose 97
Calcium 8.8
Vital Signs:
Vital Signs
Temp Pulse Resp BP Pulse Ox
98.3 F 63 18 182/83 98
01/02/25 07:33 01/02/25 07:33 01/02/25 07:33 01/02/25 07:33 01/02/25 07:33
I&O
01/01/25 01/02/25 01/03/25
06:59 06:59 06:59
Intake Total 480 / 480 480 / 480
Balance 480 / 480 480 / 480
Review of Systems
-
Respiratory: Reports No Symptoms
Cardiac: Reports No Symptoms
Abdomen/GI: Reports No Symptoms
Physical Exam
-
General: No Apparent Distress
Neuro: Awake, Alert and AO x 3
Psych: Calm
--- NOTE | 2025-01-02 13:52 | CM ---
Spoke with Simi at [facility] . Mid line info faxed to [facility] faxed over to [phone].
Pt will be contacted by [facility]
IV antibiotic given here for todays dose.
Spoke with patient Pt agreeable to home with home infusion.
PLAN Set up [facility] faxed dc summary to [phone].
[2025-01-02 14:35] VITALS: BP 145/74
--- NOTE | 2025-01-02 15:52 | PN.CDI ---
CDI
- -
CDI:
Physician Documentation Request
Admit Date: 12/24/24 13:19
Dear Doctor Lelo,
Please review the following and provide your response in the progress notes.
Clinical Indicators:
PN, 01/02
#ESBL E. coli bacteremia
#...Complicated urinary tract infection / (R) pyelonephritis on CT
#...Right lower lobe infiltrate / pneumonia
Please provide further specificity for the type of drug resistance such as:
Resistance to beta-lactam antibiotics
-Specify if penicillins, cephalosporins, ESBL resistance, etc.
Resistance to vancomycin or vancomycin-related antibiotics
Resistance to quinolones and fluoroquinolones
Resistance to other single antibiotic
-Specify if sulfonamides, aminoglycosides, tetracyclines, etc.
Resistance to multiple antibiotics
Other (please specify)
Use of terms such as suspected, likely, concern for, or probable (associated with a specific diagnosis that is being evaluated, monitored, or treated as if it exists) are acceptable and can be coded in the inpatient setting, when documented at the
time of discharge.
Thank you,
Jocelyn Locke RN BSN CCDS
CDI Specialist
Please contact via tiger text
Please use your independent medical judgment in providing your response.
== END 2025-01-02 15:54 | disposition home or self-care (01) | DRG 871 ==
LOC: 3 WEST ACU 13:19
PROVIDERS: Internal Medicine; Physician Assistant Medical; ADMITTING PHYSICIAN Hospitalist; ATTENDING PHYSICIAN Hospitalist; CONSULT PHYSICIAN Internal Medicine Infectious Disease; CONSULT PHYSICIAN Specialist; EMERGENCY PHYSICIAN Emergency Medicine; FAMILY PHYSICIAN Internal Medicine
DX: A41.51 Sepsis due to Escherichia coli [E. coli] (principal); J18.9 Pneumonia, unspecified organism; N17.9 Acute kidney failure, unspecified; N39.0 Urinary tract infection, site not specified; J91.8 Pleural effusion in other conditions classified elsewhere; E87.1 Hypo-osmolality and hyponatremia; Z16.12 Extended spectrum beta lactamase (ESBL) resistance; J98.11 Atelectasis; R65.20 Severe sepsis without septic shock; I10 Essential (primary) hypertension; N40.0 Benign prostatic hyperplasia without lower urinary tract symptoms; C61 Malignant neoplasm of prostate; R09.02 Hypoxemia; R06.89 Other abnormalities of breathing; I95.9 Hypotension, unspecified; M19.90 Unspecified osteoarthritis, unspecified site; R19.7 Diarrhea, unspecified; D69.59 Other secondary thrombocytopenia; F10.90 Alcohol use, unspecified, uncomplicated; N26.1 Atrophy of kidney (terminal); Z88.0 Allergy status to penicillin; Z87.440 Personal history of urinary (tract) infections
CPT/HCPCS: 71046; 71260; 74177; 76775; 80048; 80053; 81003; 81015; 83605; 83735; 84100; 84484; 85025; 85027; 86803; 87040; 87045; 87046; 87077; 87086; 87154; 87186; 87205; 87324; 87427; 87449; 87899; 93005; 94640; 96361; 96374; 97162; 99291; J1335; Q9967

== ENCOUNTER → 2025-01-19 16:35 | Outpatient (REF) | payer MEDICARE, OTHER, SELFPAY | LOC: MRI 3T 16:35 | PROVIDERS: ATTENDING PHYSICIAN Specialist; FAMILY PHYSICIAN Internal Medicine | DX: C61 Malignant neoplasm of prostate (principal) | CPT/HCPCS: 72197; A9575 ==

== ENCOUNTER 2025-02-14 06:47 | Outpatient (RCR) | payer MEDICARE, OTHER, SELFPAY | END 2025-02-14 23:59 | disposition home or self-care (01) | LOC: RPT 06:47 | PROVIDERS: ATTENDING PHYSICIAN Specialist; FAMILY PHYSICIAN Internal Medicine | DX: C61 Malignant neoplasm of prostate (principal); Z73.6 Limitation of activities due to disability | CPT/HCPCS: 97162; 97530 ==

== ENCOUNTER 2025-02-28 06:17 | Day surgery (SDC) | payer MEDICARE, OTHER, SELFPAY ==
[2025-02-28] VITALS (10 sets, daily range): BP systolic 110–137; BP diastolic 56–82; BMI 24.7
[2025-02-28] MEDS: NORMOSOL-R/PLASMALYTE-A 1000 IV ×2 (10:36→16:19)
[2025-02-28] MEDS: NEOMYCIN ENEMA 1 BOTTLE RECTAL (10:36)
--- NOTE | 2025-02-28 15:00 | SUR.PHASEI ---
REc'd in bed to isloation room oriented x 3 by RN, reassured, positioned for comfort, denies c/o, broussard to bsd scant light yellow output at present
--- NOTE | 2025-02-28 15:05 | SUR.PHASEI ---
More alert, c/o 'pressure down there' informed of broussard cath, encouraged to relax
--- NOTE | 2025-02-28 15:33 | SUR.PHASEI ---
Dozing arouses easily, broussard with scant drainage, repositioned self easily to L side, isaiah well, broussard with small amt red drainage, isaiah well, vss, floor RN unavailable
--- NOTE | 2025-02-28 15:50 | SUR.PHASEI ---
oral care given isaiah well isaiah ice chips well, stable, awaiting floor RN
[2025-02-28] MEDS: TORADOL IV (16:18)
--- NOTE | 2025-02-28 16:35 | PTCARENOTE ---
Received pt from PACU, AAOx3, VSS on RA, no c/o pain at this time, just pressure in hsi abdomen. Tim draining blood-tinged yellow urine. Admission complete. Incisions CDI. Pt oriented to call vigil and room, pt resting comfortably in bed at this
time.
[2025-02-28] MEDS: TORADOL 15 MG IV (18:01)
[2025-02-28] MEDS: COREG 6.25 MG PO (21:10)
[2025-02-28] MEDS: PERCOCET 5/325 1 TABLET PO (21:11)
[2025-02-28] MEDS: POLYSPORIN/DOUBLE ANTIBIOTIC 1 APPLIC TOPICAL (22:41)
[2025-03-01] MEDS: TORADOL 15 MG IV ×2 (00:49→05:36)
[2025-03-01] MEDS: NORMOSOL-R/PLASMALYTE-A 1000 IV (01:24)
[2025-03-01 03:14] VITALS: BP 123/68
[2025-03-01] MEDS: PERCOCET 5/325 1 TABLET PO (05:40)
[2025-03-01 06:37] LABS: Hematocrit 29.7 % (39.0-52.0); Hemoglobin 9.8 g/dL (13.0-18.0); Mean Corp Hgb Conc. 33.0 g/dL (33.0-37.0); Mean Corpuscular Volume 94.3 fL (80.0-94.0); Platelet Count 200 10^3/uL (130-400); Red Cell Dist. Width 12.7 % (11.5-14.5)
--- NOTE | 2025-03-01 06:39 | PTCARENOTE ---
0600 pt broussard changed to a leg bag. pt inst on leg bag and how to apply.
[2025-03-01 07:05] VITALS: BP 134/72
[2025-03-01 07:23] LABS: Blood Urea Nitrogen 27 mg/dl (9-20); Calcium 8.6 mg/dl (8.4-10.2); Carbon Dioxide 25 mmol/L (22-30); Chloride 101 mmol/L (98-107); Estimated Creatinine Clearance 39 ml/min; Glucose 116 mg/dl (70-99); Potassium 4.1 mmol/L (3.5-5.1); Sodium 132 mmol/L (135-145); eGFR 38.19
[2025-03-01] MEDS: NORVASC 10 MG PO (09:44)
[2025-03-01] MEDS: POLYSPORIN/DOUBLE ANTIBIOTIC 1 APPLIC TOPICAL (09:44)
[2025-03-01] MEDS: ORETIC 25 MG PO (09:45)
[2025-03-01] MEDS: COREG 6.25 MG PO (09:45)
[2025-03-01] MEDS: DIOVAN 320 MG PO (09:45)
[2025-03-01 11:00] VITALS: BP 104/56
--- NOTE | 2025-03-01 12:53 | W.PN.URO.CBU ---
Today's Communication / Plan
-
discharge
Assessment / Plan
-
stable
Diagnosis
-
Date of Service: March 01, 2025
-
Patient Diagnosis: prostate cancer s/p robotic radical prostatectomy
Post Op Day: 1
Subjective
-
expected pain
Objective
-
Vital Signs
Temp Pulse Resp BP Pulse Ox
98.4 F 62 20 104/56 97
03/01/25 11:00 03/01/25 11:00 03/01/25 11:00 03/01/25 11:00 03/01/25 11:00
Intake and Output
02/28/25 03/01/25 03/02/25
06:59 06:59 06:59
Intake Total 2610 / 2610 1200 / 1200
Output Total 2285 / 2285
Balance 325 / 325 1200 / 1200
Intake:
Oral fluids 1660 / 1660
IV fluids (Total) 950 / 950 1200 / 1200
normosol 650 / 650
Output:
Urine, Tim 2285 / 2285
Laboratory Results
03/01/25 06:05
03/01/25 06:05
Physical Exam
-
General - well developed, well nourished, no acute distress
Abdomen - soft, no distention
Genitalia - Tim with yellow urine
Skin - warm & dry with no rash
Neuro - AOx3, no motor deficits
Extremities - no clubbing, no cyanosis, no edema
Dressings - clean, dry, intact
--- NOTE | 2025-03-01 13:21 | CM ---
Addendum entered by Carmen De Leon 03/01/25 13:46:
CM consult completed; per Attending, no Home VN needed
SHORE notice explained; form signed
Original Note:
Met with patient at bedside
Pharmacy verified: [facility] @ [address] [place] [address]
Family Physician verified: Saud Londono; [address] [facility], [facility], [address], [place] [address];
Lives w/ ; multilevel home; half bath on 1st floor; 2nd floor bath has stall shower
Independent with ambulation, stairs and ADLs; drives; works recruiting manager
will transport home
No SNF utilization; [facility] home Infusion services in December 2024
CM Consult for Home Health/VN; patient not agreeable; wants to speak with Attending
Plan: Discharge to Home today
== END 2025-03-01 14:36 | disposition home or self-care (01) ==
LOC: SDS 06:17
PROVIDERS: ATTENDING PHYSICIAN Specialist
DX: C61 Malignant neoplasm of prostate (principal); C79.11 Secondary malignant neoplasm of bladder
CPT/HCPCS: 55866; 80048; 85027; 86850; 86900; 86901; 87086; 88305; 88307; 88309; 88312; 88331; 88341; 88342; J1335

== ENCOUNTER 2025-03-22 06:34 | Outpatient (RCR) | payer MEDICARE, OTHER, SELFPAY | END 2025-03-22 23:59 | disposition home or self-care (01) | LOC: RPT 06:34 | PROVIDERS: ATTENDING PHYSICIAN Specialist; FAMILY PHYSICIAN Internal Medicine | DX: C61 Malignant neoplasm of prostate (principal); Z73.6 Limitation of activities due to disability | CPT/HCPCS: 97110; 97164; 97530 ==

== ENCOUNTER 2025-04-05 06:40 | Outpatient (RCR) | payer MEDICARE, OTHER, SELFPAY | END 2025-04-05 23:59 | disposition home or self-care (01) | LOC: RPT 06:40 | PROVIDERS: ATTENDING PHYSICIAN Specialist; FAMILY PHYSICIAN Internal Medicine | DX: C61 Malignant neoplasm of prostate (principal); Z73.6 Limitation of activities due to disability; M62.81 Muscle weakness (generalized); R32 Unspecified urinary incontinence; Z90.79 Acquired absence of other genital organ(s); Z98.890 Other specified postprocedural states | CPT/HCPCS: 97110; 97140; 97530 ==